=== PATIENT | male | born 1950 | race Caucasian/White ===

== ENCOUNTER → 2016-11-18 | Outpatient (CLI) | payer BC ==
[~2016-11-18] MED LIST: CHOL100010 PO; MULT-506 PO; SILD100T PO
[2016-11-18 13:49] LABS: BASO % 0.5 %; BASO ABS # 0.02 K/uL (0-0.2); COMPLETE YES; EOS % 2.2 %; IG% 0.2 %; LYMPH % 19.1 %; LYMPH ABS # 0.78 K/uL (1.2-3.4); MEAN CELL VOLUME 89.1 fL (80-100); MEAN CORPUSCULAR HGB CONC 34.8 g/dl (32-36); MEAN PLATELET VOLUME 9.2 fL (7.4-10.4); MONO % 10.8 %; NEUT % 67.2 %; PLATELET COUNT 214 K/uL (130-400); RED BLOOD COUNT 5.16 M/uL (4.7-6.1); WHITE BLOOD COUNT 4.08 K/uL (4.8-10.8)
[2016-11-18 14:18] LABS: CHOLESTEROL/HDL RATIO 3.3
[2016-11-18 14:19] LABS: ALT/SGPT 50 U/L (12-78); AST/SGOT 20 U/L (15-37); BLOOD UREA NITROGEN 10 mg/dl (7-18); BUN/CREATININE RATIO 10.1 (10-20); CALCIUM 9.3 mg/dl (8.5-10.1); CARBON DIOXIDE 29 mmol/L (21-32); CHLORIDE 105 mmol/L (98-107); GLUCOSE 93 mg/dl (70-99); POTASSIUM 4.3 mmol/L (3.5-5.1); SODIUM 140 mmol/L (136-145)
[2016-11-18 14:25] LABS: ALB/GLOB RATIO 1.1 (0.9-2); ALKALINE PHOSPHATASE 89 U/L (45-117); PROSTATE SPECIFIC ANTIGEN 0.316 ng/ml (0.000-4.000)
== END | disposition home or self-care (01) ==
LOC: C.LABBC 12:02
PROVIDERS: ATTEND Nurse Practitioner Family
DX: Z11.59 Encounter for screening for other viral diseases (principal); Z13.220 Encounter for screening for lipoid disorders; Z12.5 Encounter for screening for malignant neoplasm of prostate; R03.0 Elevated blood-pressure reading, without diagnosis of hypertension

== ENCOUNTER → 2017-11-23 | Outpatient (CLI) | payer BC ==
[2017-11-23 13:44] LABS: BASO % 0.3 %; BASO ABS # 0.01 K/uL (0-0.2); EOS % 2.1 %; EOS ABS # 0.08 K/uL (0-0.5); HEMATOCRIT 45.8 % (42-52); HEMOGLOBIN 15.4 g/dL (14.0-18.0); IG# 0.01 K/uL (0.00-0.02); LYMPH % 26.8 %; LYMPH ABS # 1.03 K/uL (1.2-3.4); MEAN CELL VOLUME 89.1 fL (80-100); MEAN CORPUSCULAR HGB CONC 33.6 g/dl (32-36); MEAN PLATELET VOLUME 8.9 fL (7.4-10.4); MONO % 9.1 %; MONO ABS # 0.35 K/uL (0.11-0.59); NEUT % 61.4 %; NEUT ABS # 2.37 K/uL (1.4-6.5); PLATELET COUNT 239 K/uL (130-400); RED CELL DISTRIBUTION WIDTH CV 13.4 % (11.5-14.5); RED CELL DISTRIBUTION WIDTH SD 43.7 fL (36.4-46.3); WHITE BLOOD COUNT 3.85 K/uL (4.8-10.8)
[2017-11-23 14:20] LABS: ALBUMIN 3.7 gm/dl (3.4-5.0); ALT/SGPT 46 U/L (12-78); AST/SGOT 25 U/L (15-37); BLOOD UREA NITROGEN 14 mg/dl (7-18); CALCIUM 9.3 mg/dl (8.5-10.1); CARBON DIOXIDE 29 mmol/L (21-32); CHOLESTEROL 293 mg/dl (0-200); CREATININE 1.04 mg/dl (0.60-1.40); GLUCOSE 85 mg/dl (70-99); POTASSIUM 4.3 mmol/L (3.5-5.1); SODIUM 141 mmol/L (136-145)
[2017-11-23 14:22] LABS: ALKALINE PHOSPHATASE 104 U/L (45-117); LDL CHOLESTEROL CALCULATED 185 mg/dl; TOTAL PROTEIN 7.3 gm/dl (6.4-8.2)
== END | disposition home or self-care (01) ==
LOC: C.LABBC 10:24
PROVIDERS: ATTEND Nurse Practitioner Family
DX: E53.8 Deficiency of other specified B group vitamins (principal)

== ENCOUNTER → 2017-11-24 | Outpatient (CLI) | payer BC | END | disposition home or self-care (01) | LOC: C.LABBC 12:12 | PROVIDERS: ATTEND Nurse Practitioner Family | DX: Z12.5 Encounter for screening for malignant neoplasm of prostate (principal) ==

== ENCOUNTER 2021-03-22 17:05 | Observation (INO) ==
[2021-03-22] MEDS ORDERED: SODIUM CHLORIDE 0.9% 1000ML 1,000 ML IV STA (17:15)
[2021-03-22] MEDS ORDERED: ONDANSETRON INJ 2 MG/ML 2 ML VIAL IV STA (17:15)
[2021-03-22] MEDS ORDERED: HYDROmorphone INJ 0.5 MG/0.5 ML SYR IV STA (17:15)
[2021-03-22 17:35] LABS: Basophils # (auto) 0.01 K/uL (0-0.2); Basophils % (auto) 0.1 %; Eosinophils # (auto) 0.02 K/uL (0-0.5); Eosinophils % (auto) 0.3 %; Hematocrit (blood only) 43.1 % (42-52); Hemoglobin 14.9 g/dL (14.0-18.0); Immature Granulocytes # (auto) 0.03 K/uL (0.00-0.02); Immature Granulocytes % (auto) 0.4 %; Lymphocytes # (auto) 0.78 K/uL (1.2-3.4); Lymphocytes % (auto) 11.3 %; Mean Corpuscular Hemoglobin 31.3 pg (25-34); Mean Corpuscular Hgb Conc 34.6 g/dL (32-36); Mean Corpuscular Volume 90.5 fL (80-100); Mean Platelet Volume 8.8 fL (7.4-10.4); Monocytes # (auto) 0.32 K/uL (0.11-0.59); Monocytes % (auto) 4.6 %; Neutrophils # (auto) 5.73 K/uL (1.4-6.5); Neutrophils % (auto) 83.3 %; Platelet Count 247 K/uL (130-400); RDW Coefficient of Variation 13.1 % (11.5-14.5); RDW Standard Deviation 43.4 fL (36.4-46.3); Red Blood Count 4.76 M/uL (4.7-6.1); White Blood Count 6.89 K/uL (4.8-10.8)
[2021-03-22 17:55] LABS: Alanine Aminotransferase 43 U/L (12-78); Albumin Level 3.9 gm/dl (3.4-5.0); Aspartate Aminotransferase 23 U/L (15-37); Blood Urea Nitrogen 14 mg/dl (7-18); Calcium 10.1 mg/dl (8.5-10.1); Carbon Dioxide 26 mmol/L (21-32); Chloride 103 mmol/L (98-107); Creatinine Clr Calc Pharmacy 62.4 ml/min; Est GFR (African American) 82.4; Est GFR (Non-African American) 71.1; Glucose 153 mg/dl (70-99); Lipase 119 U/L (73-393); Potassium 3.7 mmol/L (3.5-5.1); Sodium 137 mmol/L (136-145)
[2021-03-22 17:59] LABS: Alkaline Phosphatase 207 U/L (45-117); Bilirubin,Total 0.6 mg/dl (0.2-1); Globulin 3.8 gm/dl (2.5-4.0); Total Protein 7.7 gm/dl (6.4-8.2); Troponin I < 0.015 ng/ml (0-0.045)
[2021-03-22] MEDS ORDERED: OPTIRAY 350 500ml IV ONE (18:09)
[2021-03-22] MEDS ORDERED: HYDROmorphone INJ 1 MG/ML SYRINGE IV STA ×2 (18:44→19:46)
--- NOTE | 2021-03-22 18:50 | Emergency Department Note ---
History of Present Illness General Chief complaint: Abdominal Pain Stated complaint: SEVERE ABDOMIAL PAIN Time Seen by Provider: 03/22/21 17:15 Source: patient and RN notes reviewed Mode of arrival: ambulatory Limitations: no limitations History of Present Illness Provider complaint: Severe epigastric abdominal pain Maximum Pain Intensity: 8 This patient is a 71-year-old male who presents emergency department with severe epigastric abdominal pain that began late this morning/early afternoon. Patient states it became severe when he was sitting at the playground watching his grandchildren play. He denies ever having pain like this in the past. He thinks maybe he had a less severe version of this discomfort yesterday evening. He denies any chest pain, shortness of breath but admits to some nausea. He states he simply cannot find a position to become comfortable. He denies any d iarrhea or blood in the stools. He denies any significant past medical history and states he does have a gallbladder. Home Medications Medication Instructions Recorded Confirmed Type atorvastatin 20 mg tablet 20 mg PO HS #90 tab 10/27/20 03/22/21 Rx sildenafil 100 mg tablet 100 mg PO DAILY PRN #6 tab 01/22/21 03/22/21 Rx lisinopril 5 mg tablet 5 mg PO DAILY #90 tab 02/23/21 03/22/21 Rx Allergies Allergy/AdvReac Type Severity Reaction Status Date / Time Penicillins Allergy Mild Unknown Verified 03/22/21 17:35 Past Med/Surg History Medical History Elevated blood pressure reading without diagnosis of hypertension Hypercholesterolemia Vitamin B12 deficiency Surgical History No history of previous surgery Family History Mother Myocardial infarction Pancreatic cancer Father Parkinsons Denies family history of Ovarian cancer Prostate cancer Breast cancer Colorectal cancer Social History Smoking Status: Former smoker Tobacco Type: Cigarettes Age Started Using Tobacco: 22; Age Quit Using Tobacco: 50; packs per day: 0.5; Years Smoked: 28; Cigarettes Per Day: 10; Smoking End Date: 1979; Number of Years Since Quit: 20; Second Hand Exposure: No; Do You Dip or Chew Tobacco: No; Hx Alcohol Use: Yes Alcohol type: beer Alcohol Intake Frequency Comment: "6 beers a week" Hx Substance Use: No Preferred Language: Georgian Communication Ability: Effective Visual Impairment: No Limitations Hearing Ability: Normal Awning Craftsman Required: No Beliefs That Will Affect Care: None marital status: Current Living Situation: Spouse 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 status: retired 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 and A total of 10 systems reviewed and were otherwise negative Physical Exam Vital Signs Vital Signs - 24 hr 03/22/21 17:08 03/22/21 17:22 03/22/21 17:26 Temperature 36.5 C Temperature Source Temporal Artery Scan Pulse Rate 49 L 42 L 41 L Pulse Rate from SpO2 Sensor 42 L 42 L Respiratory Rate 21 13 20 Respiratory Effort / Characteristics Non-Labored Respiratory Depth Normal Blood Pressure 176/76 H 170/80 H Blood Pressure Mean 109 110 Pulse Oximetry 98 98 99 Oxygen Delivery Method Room Air Room Air Room Air Sepsis Recent Fever Within 48 Hours No Sepsis New/Unexplained Change in Mental Status No Sepsis Action Taken by Nursing No Action Required 03/22/21 17:30 03/22/21 17:31 03/22/21 17:33 Temperature Temperature Source Pulse Rate 42 L 44 L Pulse Rate from SpO2 Sensor 43 L 45 L Respiratory Rate 17 15 Respiratory Effort / Characteristics Respiratory Depth Blood Pressure 150/77 H Blood Pressure Mean 101 Pulse Oximetry 96 98 Oxygen Delivery Method Room Air Room Air Room Air Sepsis Recent Fever Within 48 Hours Sepsis New/Unexplained Change in Mental Status Sepsis Action Taken by Nursing 03/22/21 17:40 03/22/21 17:50 03/22/21 18:01 Temperature Temperature Source Pulse Rate 48 L 43 L Pulse Rate from SpO2 Sensor 49 L 42 L Respiratory Rate 15 14 Respiratory Effort / Characteristics Respiratory Depth Blood Pressure 140/78 Blood Pressure Mean 98 Pulse Oximetry 97 97 Oxygen Delivery Method Room Air Room Air Room Air Sepsis Recent Fever Within 48 Hours Sepsis New/Unexplained Change in Mental Status Sepsis Action Taken by Nursing 03/22/21 18:22 03/22/21 18:23 03/22/21 18:30 Temperature Temperature Source Pulse Rate 43 L 48 L 46 L Pulse Rate from SpO2 Sensor 54 L 48 L 49 L Respiratory Rate 17 21 10 L Respiratory Effort / Characteristics Respiratory Depth Blood Pressure 153/76 H 165/81 H Blood Pressure Mean 101 109 Pulse Oximetry 96 98 98 Oxygen Delivery Method Room Air Room Air Room Air Sepsis Recent Fever Within 48 Hours Sepsis New/Unexplained Change in Mental Status Sepsis Action Taken by Nursing 03/22/21 18:40 03/22/21 18:50 03/22/21 19:00 Temperature Temperature Source Pulse Rate 45 L 53 L 52 L Pulse Rate from SpO2 Sensor 45 L 46 L 45 L Respiratory Rate 10 L 18 42 H Respiratory Effort / Characteristics Respiratory Depth Blood Pressure Blood Pressure Mean Pulse Oximetry 96 92 91 Oxygen Delivery Method Room Air Room Air Room Air Sepsis Recent Fever Within 48 Hours Sepsis New/Unexplained Change in Mental Status Sepsis Action Taken by Nursing 03/22/21 19:05 03/22/21 19:30 03/22/21 20:00 Temperature Temperature Source Pulse Rate 58 L 46 L 59 L Pulse Rate from SpO2 Sensor 58 L 46 L 59 L Respiratory Rate 13 9 L 13 Respiratory Effort / Characteristics Respiratory Depth Blood Pressure 139/75 138/67 152/96 H Blood Pressure Mean 96 90 114 Pulse Oximetry 99 98 97 Oxygen Delivery Method Sepsis Recent Fever Within 48 Hours Sepsis New/Unexplained Change in Mental Status Sepsis Action Taken by Nursing 03/22/21 20:01 Temperature Temperature Source Pulse Rate 58 L Pulse Rate from SpO2 Sensor 58 L Respiratory Rate 14 Respiratory Effort / Characteristics Respiratory Depth Blood Pressure Blood Pressure Mean Pulse Oximetry 96 Oxygen Delivery Method Sepsis Recent Fever Within 48 Hours Sepsis New/Unexplained Change in Mental Status Sepsis Action Taken by Nursing Vital signs reviewed. General: Well-appearing 71 yo male, in no significant distress. HEENT: No scleral icterus, PERRLA, neck supple. Atraumatic. Cardiovascular: Regular rate and rhythm, no extra sounds. Pulmonary: Clear to auscultation bilaterally, normal work of breathing. Abdomen: Soft, tender to palpation in the epigastric region, no rebound, no guarding, nondistended, positive bowel sounds. Musculoskeletal: Atraumatic, no peripheral edema. Neurologic: Patient awake alert and oriented x 3 Skin: Warm, dry, no rash Course Administered Medications Heparin Sodium (Porcine) (Heparin Sod 5,000 Unit/0.5 Ml Vial) 5,000 units SQ Q8 [facility] Stop: 04/21/21 22:34 Last Admin: 03/22/21 23:54 Dose: Not Given Documented by: [id number] Hydromorphone HCl (Hydromorphone Inj 0.5 Mg/0.5 Ml Syr) 0.5 mg IV Q4H PRN PRN Reason: Pain Stop: 04/05/21 22:34 Last Admin: 03/22/21 23:57 Dose: 0.5 mg Documented by: [id number] Lactated Ringer's (Lr) 1,000 mls @ 80 mls/hr IV .[id number] [facility] Stop: 04/21/21 22:34 Last Admin: 03/22/21 23:02 Dose: 80 mls/hr Documented by: [id number] Metronidazole (Flagyl) 500 mg in 100 mls @ 100 mls/hr IV Q8 [facility] Stop: 04/01/21 23:14 Last Admin: 03/22/21 23:55 Dose: 100 mls/hr Documented by: [id number] Ondansetron HCl (Ondansetron Inj 2 Mg/Ml 2 Ml Vial) 4 mg IV Q6H PRN PRN Reason: Nausea Stop: 04/21/21 22:34 Last Admin: 03/22/21 23:58 Dose: 4 mg Documented by: [id number] Discontinued Medications Hydromorphone HCl (Hydromorphone Inj 0.5 Mg/0.5 Ml Syr) 0.5 mg IV NOW STA Stop: 03/22/21 17:16 Last Admin: 03/22/21 17:31 Dose: 0.5 mg Documented by: [id number] Hydromorphone HCl (Hydromorphone Inj 1 Mg/Ml Syringe) 1 mg IV NOW STA Stop: 03/22/21 18:45 Last Admin: 03/22/21 19:02 Dose: 1 mg Documented by: [id number] Hydromorphone HCl (Hydromorphone Inj 1 Mg/Ml Syringe) 1 mg IV NOW STA Stop: 03/22/21 19:47 Last Admin: 03/22/21 19:53 Dose: 1 mg Documented by: [id number] Sodium Chloride (Nss 1000ml) 1,000 mls @ 125 mls/hr IV .Q8H STA Stop: 03/23/21 01:14 Last Admin: 03/22/21 17:29 Dose: 125 mls/hr Documented by: [id number] Cefoxitin Sodium (Mefoxin) 2,000 mg in 60 mls @ 100 mls/hr IV NOW STA Stop: 03/22/21 19:58 Last Infusion: 03/22/21 20:46 Dose: 0 mls/hr Documented by: [id number] Admin: 03/22/21 19:49 Dose: 100 mls/hr Documented by: [id number] Ioversol (Optiray 350 500ml) 120 ml IV ONCE ONE Stop: 03/22/21 18:10 Last Admin: 03/22/21 18:13 Dose: 120 ml Documented by: [id number] Ondansetron HCl (Ondansetron Inj 2 Mg/Ml 2 Ml Vial) 4 mg IV NOW STA Stop: 03/22/21 17:16 Last Admin: 03/22/21 17:30 Dose: 4 mg Documented by: [id number] Medical Decision Making Differential Diagnosis Appendicitis, ACS, infections, diverticulitis, UTI, obstruction, mesenteric ischemia, aortic pathology, inflammatory bowel disease, renal colic, PUD, pancreatitis, biliary pathology, hernia, volvulus, constipation, as well as other pathologies. Medical Records Attestation: I reviewed the patient's medical records. Home Medications Current Medication List: was personally reviewed by me Laboratory Data Attestation: I reviewed the patient's lab results. Result diagrams: 03/22/21 17:24 03/22/21 17:24 Lab Results 03/22/21 03/22/21 03/22/21 Range/Units 17:24 17:24 17:24 WBC 6.89 (4.8-10.8) K/uL RBC 4.76 (4.7-6.1) M/uL Hgb 14.9 (14.0-18.0) g/dL Hct 43.1 (42-52) % MCV 90.5 (80-100) fL MCH 31.3 (25-34) pg MCHC 34.6 (32-36) g/dL RDW Std Deviation 43.4 (36.4-46.3) fL RDW Coeff of Feliz 13.1 (11.5-14.5) % Plt Count 247 (130-400) K/uL MPV 8.8 (7.4-10.4) fL Immature Gran % (Auto) 0.4 % Neut % (Auto) 83.3 % Lymph % (Auto) 11.3 % [place] % (Auto) 4.6 % Eos % (Auto) 0.3 % Baso % (Auto) 0.1 % Neut # (Auto) 5.73 (1.4-6.5) K/uL Lymph # (Auto) 0.78 L (1.2-3.4) K/uL [place] # (Auto) 0.32 (0.11-0.59) K/uL Eos # (Auto) 0.02 (0-0.5) K/uL Baso # (Auto) 0.01 (0-0.2) K/uL Immature Gran # (Auto) 0.03 H (0.00-0.02) K/uL Sodium 137 (136-145) mmol/L Potassium 3.7 (3.5-5.1) mmol/L Chloride 103 (98-107) mmol/L Carbon Dioxide 26 (21-32) mmol/L Anion Gap 9.0 (3-11) BUN 14 (7-18) mg/dl Creatinine 1.05 (0.6-1.4) mg/dl Est Cr Clr Drug Dosing 62.4 ml/min Est GFR ( Amer) 82.4 Est GFR (Non-Af Amer) 71.1 BUN/Creatinine Ratio 13.0 (10-20) Glucose 153 H (70-99) mg/dl Lactate 3.5 H* (0.4-2.0) mmol/L Calcium 10.1 (8.5-10.1) mg/dl Total Bilirubin 0.6 (0.2-1) mg/dl AST 23 (15-37) U/L ALT 43 (12-78) U/L Alkaline Phosphatase 207 H (45-117) U/L Troponin I < 0.015 (0-0.045) ng/ml Total Protein 7.7 (6.4-8.2) gm/dl Albumin 3.9 (3.4-5.0) gm/dl Globulin 3.8 (2.5-4.0) gm/dl Albumin/Globulin Ratio 1.0 (0.9-2) Lipase 119 (73-393) U/L Urine Color Urine Appearance (Clear) Urine pH (4.5-7.5) Ur Specific [place] (1.000-1.030) Urine Protein (Negative) Urine Glucose (UA) (Negative) Urine Ketones (Negative) Urine Blood (Negative) Urine Nitrite (Negative) Urine Bilirubin (Negative) Urine Urobilinogen (Negative) Ur Leukocyte Esterase (Negative) COVID-19 Eval Order SARS-CoV-2 (PCR) (Negative) Influenza Type A (PCR) (Neg) Influenza Type B (PCR) (Neg) RSV (RT-PCR) (Neg) 03/22/21 03/22/21 03/22/21 Range/Units 18:40 19:35 19:35 WBC (4.8-10.8) K/uL RBC (4.7-6.1) M/uL Hgb (14.0-18.0) g/dL Hct (42-52) % MCV (80-100) fL MCH (25-34) pg MCHC (32-36) g/dL RDW Std Deviation (36.4-46.3) fL RDW Coeff of Feliz (11.5-14.5) % Plt Count (130-400) K/uL MPV (7.4-10.4) fL Immature Gran % (Auto) % Neut % (Auto) % Lymph % (Auto) % [place] % (Auto) % Eos % (Auto) % Baso % (Auto) % Neut # (Auto) (1.4-6.5) K/uL Lymph # (Auto) (1.2-3.4) K/uL [place] # (Auto) (0.11-0.59) K/uL Eos # (Auto) (0-0.5) K/uL Baso # (Auto) (0-0.2) K/uL Immature Gran # (Auto) (0.00-0.02) K/uL Sodium (136-145) mmol/L Potassium (3.5-5.1) mmol/L Chloride (98-107) mmol/L Carbon Dioxide (21-32) mmol/L Anion Gap (3-11) BUN (7-18) mg/dl Creatinine (0.6-1.4) mg/dl Est Cr Clr Drug Dosing ml/min Est GFR ( Amer) Est GFR (Non-Af Amer) BUN/Creatinine Ratio (10-20) Glucose (70-99) mg/dl Lactate (0.4-2.0) mmol/L Calcium (8.5-10.1) mg/dl Total Bilirubin (0.2-1) mg/dl AST (15-37) U/L ALT (12-78) U/L Alkaline Phosphatase (45-117) U/L Troponin I (0-0.045) ng/ml Total Protein (6.4-8.2) gm/dl Albumin (3.4-5.0) gm/dl Globulin (2.5-4.0) gm/dl Albumin/Globulin Ratio (0.9-2) Lipase (73-393) U/L Urine Color Yellow Urine Appearance Clear (Clear) Urine pH 5.5 (4.5-7.5) Ur Specific [place] 1.023 (1.000-1.030) Urine Protein Negative (Negative) Urine Glucose (UA) Negative (Negative) Urine Ketones Trace H (Negative) Urine Blood Negative (Negative) Urine Nitrite Negative (Negative) Urine Bilirubin Negative (Negative) Urine Urobilinogen Negative (Negative) Ur Leukocyte Esterase Negative (Negative) COVID-19 Eval Order [facility]FluRsv at [facility] SARS-CoV-2 (PCR) NEGATIVE (Negative) Influenza Type A (PCR) Negative (Neg) Influenza Type B (PCR) Negative (Neg) RSV (RT-PCR) Negative (Neg) Imaging Data Radiologist's Impression: Abdomen/Pelvis CTA 03/22/21 17:52 CT ANGIOGRAM OF THE CHEST, ABDOMEN, AND PELVIS WITH IV CONTRAST CLINICAL HISTORY: Bradycardia. Epigastric abdominal pain. COMPARISON STUDY: Chest CT dated 03/06/2021. TECHNIQUE: Following the IV administration of 120 cc of Optiray 350, CT ang iogram of the chest, abdomen, and pelvis was performed from the thoracic inlet to the proximal femora. Images are reviewed in the axial, sagittal, and coronal planes. 3-D MIPS images are created and assessed. IV contrast was administered without complication. A dose lowering technique was utilized adhering to the principles of ALARA. CT DOSE: 632.82 mGy.cm FINDINGS: CHEST: Thyroid: Imaged portions of the thyroid gland are normal in size and attenuation. Thoracic aorta: There is mild atherosclerotic calcification of the thoracic aorta, which is normal in course and caliber. The aortic arch demonstrates standard 3-vessel anatomy. No aneurysm or dissection is seen. Pulmonary vasculature: The main pulmonary arteries are mildly dilated suggesting pulmonary artery hypertension. There are no filling defects identified within the main, lobar, or segmental pulmonary arteries to suggest pulmonary embolus. Heart: The heart is mildly enlarged and without pericardial effusion. The coronary arteries are densely calcified. Lungs and pleural spaces: Mild emphysematous change is noted. There is no airspace consolidation typical for pneumonia or pleural effusion. Foci of parenchymal scarring/atelectasis are seen throughout both lungs. The trachea and central airways are clear. Diffuse peribronchial thickening is noted. There are scattered calcified granulomas. Mediastinum: There is no mediastinal lymphadenopathy. Julia: Clear. Axillae: There is no axillary lymphadenopathy. Bony thorax: The skeletal structures are osteopenic. No lytic or blastic lesions are identified. ABDOMEN AND PELVIS: Liver: The contrast-enhanced liver is normal in size, contour, and attenuation. There is no intrahepatic biliary ductal dilatation. Gallbladder: There are numerous calcified gallstones, with a 2.5 cm gallstone the region of gallbladder neck. Question mild infiltration around the gallbladder neck. Spleen: Normal in size and attenuation noting heterogeneous arterial phase enhancement. Pancreas: Unremarkable. Adrenal glands: There is mild nodular thickening of the adrenal glands. Kidneys: The contrast enhanced kidneys are normal in size and without hydronephrosis. The kidneys enhance symmetrically. Abdominal aorta and iliac arteries: There is moderate atherosclerotic calcification mild ectasia of the abdominal aorta. No aneurysm or dissection is seen. The abdominal aorta and iliac arteries are widely patent. Major branches of the abdominal aorta: The celiac trunk, superior mesenteric, and inferior mesenteric arteries are widely patent. Hepatic arterial anatomy is conventional. The splenic artery is patent. Single bilateral renal arteries are widely patent. Bowel: There is no bowel obstruction. The appendix is well-visualized and normal. Peritoneum: No intraperitoneal free air is identified. There is trace perisplenic ascites. Lymphadenopathy: Shotty subcentimeter retroperitoneal lymph nodes are nonspecific. No pathologically enlarged lymph nodes are identified in the abdomen or pelvis. Pelvic viscera: The prostate gland is mildly enlarged and heterogeneous. The bladder wall appears thickened and trabeculated suggesting chronic outlet obstruction. Skeletal structures: The skeletal structures are osteopenic. There is mild to moderate lumbosacral spondylosis. No lytic or blastic bony lesions are seen. IMPRESSION: 1. Unremarkable CT angiogram of the thoracic aorta and abdominal aorta. 2. There is no evidence of pulmonary embolus in the main, lobar, or segmental pulmonary arteries. 3. Mild cardiomegaly and mild emphysematous change. 4. There is no airspace consolidation typical for pneumonia or pleural effusion. 5. Diffuse peribronchial thickening suggests bronchitis/reactive airway disease. Clinical correlation will be required. 6. Cholelithiasis with a 2.5 cm gallstone the region of the gallbladder neck. Question faint surrounding infiltration. If there is clinical concern for acute cholecystitis a right upper quadrant ultrasound should be considered. 7. Unremarkable CT angiogram of the major branches of the abdominal aorta. 8. There is trace nonspecific perisplenic ascites. 9. The bladder wall appears thickened and trabeculated, likely representing the sequelae of chronic outlet obstruction. Correlate with urinalysis. 10. Additional findings as above. ACT 112: Negative or not required by law. Electronically signed by: Juan Talbot M.D. 03/22/2021 6:56 PM Chest CTA 03/22/21 17:52 CT ANGIOGRAM OF THE CHEST, ABDOMEN, AND PELVIS WITH IV CONTRAST CLINICAL HISTORY: Bradycardia. Epigastric abdominal pain. COMPARISON STUDY: Chest CT dated 03/06/2021. TECHNIQUE: Following the IV administration of 120 cc of Optiray 350, CT angiogram of the chest, abdomen, and pelvis was performed from the thoracic inlet to the proximal femora. Images are reviewed in the axial, sagittal, and coronal planes. 3-D MIPS images are created and assessed. IV contrast was administered without complication. A dose lowering technique was utilized adhering to the principles of ALARA. CT DOSE: 632.82 mGy.cm FINDINGS: CHEST: Thyroid: Imaged portions of the thyroid gland are normal in size and attenuation. Thoracic aorta: There is mild atherosclerotic calcification of the thoracic aorta, which is normal in course and caliber. The aortic arch demonstrates standard 3-vessel anatomy. No aneurysm or dissection is seen. Pulmonary vasculature: The main pulmonary arteries are mildly dilated suggesting pulmonary artery hypertension. There are no filling defects identified within the main, lobar, or segmental pulmonary arteries to suggest pulmonary embolus. Heart: The heart is mildly enlarged and without pericardial effusion. The coronary arteries are densely calcified. Lungs and pleural spaces: Mild emphysematous change is noted. There is no airspace consolidation typical for pneumonia or pleural effusion. Foci of parenchymal scarring/atelectasis are seen throughout both lungs. The trachea and central airways are clear. Diffuse peribronchial thickening is noted. There are scattered calcified granulomas. Mediastinum: There is no mediastinal lymphadenopathy. Julia: Clear. Axillae: There is no axillary lymphadenopathy. Bony thorax: The skeletal structures are osteopenic. No lytic or blastic lesions are identified. ABDOMEN AND PELVIS: Liver: The contrast-enhanced liver is normal in size, contour, and attenuation. There is no intrahepatic biliary ductal dilatation. Gallbladder: There are numerous calcified gallstones, with a 2.5 cm gallstone the region of gallbladder neck. Question mild infiltration around the gallbladder neck. Spleen: Normal in size and attenuation noting heterogeneous arterial phase enhancement. Pancreas: Unremarkable. Adrenal glands: There is mild nodular thickening of the adrenal glands. Kidneys: The contrast enhanced kidneys are normal in size and without hydronephrosis. The kidneys enhance symmetrically. Abdominal aorta and iliac arteries: There is moderate atherosclerotic calcification mild ectasia of the abdominal aorta. No aneurysm or dissection is seen. The abdominal aorta and iliac arteries are widely patent. Major branches of the abdominal aorta: The celiac trunk, superior mesenteric, and inferior mesenteric arteries are widely patent. Hepatic arterial anatomy is conventional. The splenic artery is patent. Single bilateral renal arteries are widely patent. Bowel: There is no bowel obstruction. The appendix is well-visualized and normal. Peritoneum: No intraperitoneal free air is identified. There is trace perisplenic ascites. Lymphadenopathy: Shotty subcentimeter retroperitoneal lymph nodes are nonspecific. No pathologically enlarged lymph nodes are identified in the abdomen or pelvis. Pelvic viscera: The prostate gland is mildly enlarged and heterogeneous. The bladder wall appears thickened and trabeculated suggesting chronic outlet obstruction. Skeletal structures: The skeletal structures are osteopenic. There is mild to moderate lumbosacral spondylosis. No lytic or blastic bony lesions are seen. IMPRESSION: 1. Unremarkable CT angiogram of the thoracic aorta and abdominal aorta. 2. There is no evidence of pulmonary embolus in the main, lobar, or segmental pulmonary arteries. 3. Mild cardiomegaly and mild emphysematous change. 4. There is no airspace consolidation typical for pneumonia or pleural effusion. 5. Diffuse peribronchial thickening suggests bronchitis/reactive airway disease. Clinical correlation will be required. 6. Cholelithiasis with a 2.5 cm gallstone the region of the gallbladder neck. Question faint surrounding infiltration. If there is clinical concern for acute cholecystitis a right upper quadrant ultrasound should be considered. 7. Unremarkable CT angiogram of the major branches of the abdominal aorta. 8. There is trace nonspecific perisplenic ascites. 9. The bladder wall appears thickened and trabeculated, likely representing the sequelae of chronic outlet obstruction. Correlate with urinalysis. 10. Additional findings as above. ACT 112: Negative or not required by law. Electronically signed by: Juan Talbot M.D. 03/22/2021 6:56 PM ECG Data Attestation: I personally reviewed and interpreted this ECG as follows: Indication: + bradycardia Rate (beats per minute): 39 Rhythm: + sinus bradycardia ECG Intervals/blocks: + Normal QRS and + Normal QT-c ECG [place]: + Normal ECG ST segments: + Normal ST segments ECG Findings: + PVCs; no PACs Comparison ECG Date: no prior available Blood Pressure Blood Pressure Findings: Elevated blood pressure Blood Pressure Disposition: further management by hospitalist MDM Narrative This patient was evaluated and appeared to be in some discomfort. IV access was obtained and laboratory work was drawn. An order for cardiac monitoring was placed and the patient is noted to be in a sinus bradycardia with occasional PVCs but around 45 bpm. Patient's blood pressure is however slightly elevated. Medicated with IV Dilaudid 0.5 mg and Zofran 4 mg IV. He was hydrated with normal saline solution. Given the patient's bradycardia and epigastric pain, CT imaging of the chest, abdomen and pelvis was ordered with IV contrast to evaluate the aorta. The study is negative for dissection however there is a gallstone impacted in the gallbladder neck. There is minimal stranding. Patient's laboratory work reveals a normal troponin, elevated lactate of 3.6 and normal LFTs. Lipase is normal. Follow-up ultrasound was ordered and the patient was more aggressively hydrated with saline and given 2 g of IV Mefoxin. General surgery, Dr. Andrade was consulted. He has requested general medicine admission. Dr. Johnson of the hospitalist service was consulted for further management. Patient and are aware of the plan and agree. Impression & Plan Bradycardia, Symptomatic cholelithiasis, Impacted gallstone of gallbladder Discharge Plan Visit Data Chief Complaint: Abdominal Pain Stated Complaint: SEVERE ABDOMIAL PAIN ED Provider: Kath Alatorre Discharge Problem: Bradycardia, Symptomatic cholelithiasis, Impacted gallstone of gallbladder Patient Disposition: Admitted As Inpatient Discharge Instructions Interventions: ED Discharge Assessment Last Done: 03/22/21 21:57
[2021-03-22 18:58] LABS: Appearance Urine Clear (Clear); Bilirubin Urine Negative (Negative); Blood Urine Negative (Negative); Color Urine Yellow; Glucose Urine UA Negative (Negative); Ketones Urine Trace (Negative); Leukocyte Esterase Urine Negative (Negative); Nitrite Urine Negative (Negative); Protein Urine Negative (Negative); Specific Gravity Urine 1.023 (1.000-1.030); Urobilinogen Urine Negative (Negative); pH Urine 5.5 (4.5-7.5)
--- NOTE | 2021-03-22 18:58 | CT Scan Report ---
CT ANGIOGRAM OF THE CHEST, ABDOMEN, AND PELVIS WITH IV CONTRAST CLINICAL HISTORY: Bradycardia. Epigastric abdominal pain. COMPARISON STUDY: Chest CT dated 03/06/2021. TECHNIQUE: Following the IV administration of 120 cc of Optiray 350, CT angiogram of the chest, abdom en, and pelvis was performed from the thoracic inlet to the proximal femora. Images are reviewed in [facility] axial, sagittal, and coronal planes. 3-D MIPS images are created and assessed. IV contrast was adm inistered without complication. A dose lowering technique was utilized adhering to the principles of ALARA. CT DOSE: 632.82 mGy.cm FINDINGS: CHEST: Thyroid: Imaged portions of the thyroid gland are normal in size and attenuation. Thoracic aorta: There is mild atherosclerotic calcification of the thoracic aorta, which is normal in course and caliber. The aortic arch demonstrates standard 3-vessel anatomy. No aneurysm or dissectio n is seen. Pulmonary vasculature: The main pulmonary arteries are mildly dilated suggesting pulmonary artery hyp ertension. There are no filling defects identified within the main, lobar, or segmental pulmonary art eries to suggest pulmonary embolus. Heart: The heart is mildly enlarged and without pericardial effusion. The coronary arteries are dense ly calcified. Lungs and pleural spaces: Mild emphysematous change is noted. There is no airspace consolidation typi kiara for pneumonia or pleural effusion. Foci of parenchymal scarring/atelectasis are seen throughout b oth lungs. The trachea and central airways are clear. Diffuse peribronchial thickening is noted. Ther e are scattered calcified granulomas. Mediastinum: There is no mediastinal lymphadenopathy. Julia: Clear. Axillae: There is no axillary lymphadenopathy. Bony thorax: The skeletal structures are osteopenic. No lytic or blastic lesions are identified. ABDOMEN AND PELVIS: Liver: The contrast-enhanced liver is normal in size, contour, and attenuation. There is no intrahepa tic biliary ductal dilatation. Gallbladder: There are numerous calcified gallstones, with a 2.5 cm gallstone the region of gallbladd er neck. Question mild infiltration around the gallbladder neck. Spleen: Normal in size and attenuation noting heterogeneous arterial phase enhancement. Pancreas: Unremarkable. Adrenal glands: There is mild nodular thickening of the adrenal glands. Kidneys: The contrast enhanced kidneys are normal in size and without hydronephrosis. The kidneys enh ance symmetrically. Abdominal aorta and iliac arteries: There is moderate atherosclerotic calcification mild ectasia of t he abdominal aorta. No aneurysm or dissection is seen. The abdominal aorta and iliac arteries are wid lázaro patent. Major branches of the abdominal aorta: The celiac trunk, superior mesenteric, and inferior mesenteric arteries are widely patent. Hepatic arterial anatomy is conventional. The splenic artery is patent. Single bilateral renal arteries are widely patent. Bowel: There is no bowel obstruction. The appendix is well-visualized and normal. Peritoneum: No intraperitoneal free air is identified. There is trace perisplenic ascites. Lymphadenopathy: Shotty subcentimeter retroperitoneal lymph nodes are nonspecific. No pathologically enlarged lymph nodes are identified in the abdomen or pelvis. Pelvic viscera: The prostate gland is mildly enlarged and heterogeneous. The bladder wall appears thi ckened and trabeculated suggesting chronic outlet obstruction. Skeletal structures: The skeletal structures are osteopenic. There is mild to moderate lumbosacral sp ondylosis. No lytic or blastic bony lesions are seen. IMPRESSION: 1. Unremarkable CT angiogram of the thoracic aorta and abdominal aorta. 2. There is no evidence of pulmonary embolus in the main, lobar, or segmental pulmonary arteries. 3. Mild cardiomegaly and mild emphysematous change. 4. There is no airspace consolidation typical for pneumonia or pleural effusion. 5. Diffuse peribronchial thickening suggests bronchitis/reactive airway disease. Clinical correlation will be required. 6. Cholelithiasis with a 2.5 cm gallstone the region of the gallbladder neck. Question faint surround ing infiltration. If there is clinical concern for acute cholecystitis a right upper quadrant ultraso und should be considered. 7. Unremarkable CT angiogram of the major branches of the abdominal aorta. 8. There is trace nonspecific perisplenic ascites. 9. The bladder wall appears thickened and trabeculated, likely representing the sequelae of chronic o utlet obstruction. Correlate with urinalysis. 10. Additional findings as above. ACT 112: Negative or not required by law. Electronically signed by: Juan Talbot M.D. 03/22/2021 6:56 PM
[2021-03-22] MEDS ORDERED: cefOXitin 2,000 MG/60 ML BAG IV STA (19:23)
--- NOTE | 2021-03-22 20:38 | History & Physical Report ---
Date of Service March 22, 2021 Assessment & Plan (1) Cholelithiasis and cholecystitis without obstruction: Cholelithiasis with a 2.5 cm gallstone the region of the gallbladder neck. Question faint surrounding infiltration. If there is clinical concern for acute cholecystitis a right upper quadrant ultrasound should be considered. - NPO after midnight - Continue Cefoxitin, added Flagyl - Blood Cultures x2 - Gallbladder ultrasound pending - Trend Lactate- 3.5 - No WBC, qSOFA- 1, SIRS-1 on admission - LR overnight - LFT's normal, mildly elevated ALKpo4, normal bili, normal Lipase - Surgery consulted (2) Epigastric pain: Able to point to subxyphoid epigastrum with 1 finger - no radiation - ECG as above, admit to telemetry and monitor - Consistent with his known gallstones (3) Benign essential hypertension: Will hold lisinopril for now - If patient does not go to the OR will restart - If SBP >180 will treat tonight (4) Hypercholesterolemia: Continue atrovastatin 20 mg - No acute needs History of Present Illness Primary Care Provider: 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 Patient reports that he was at a birthday republic[employer] and out of now where he started getting a sharp aching pain to his epigastrium area. The patient points directly below his xiphoid process to localize the pain. The pain was constant pain and has remained constant level since then. This was associated with nausea without vomiting. He has had no dyspnea. The pain did not radiate to any other area. He last ate a hamburger at noon today and this did not change his pain. He had episode of diarrhea that was watery brown with no reports of blood or mucous in it. The patient feels as his pain is getting better following IV hydromorphone in the ER. During his initial work-up he was also found to be bradycardic in NSR. Patient normally is in the 70s per review of his outpatient apointments. There is no other ECG available for comparison. The patient had a CT scan of the abdomen done that revealed a 2.5 cm gallstone in the neck of the gall bladder, ultrasound is pending for follow up. Dr. Andrade from General Surgery was consulted by the JOSE Baker. He also received 2GM Cefoxitin, and 1 L 0.9 saline for a lactate of 3.5. He is hemodynamically stable, no other evidence of organ dysfunction, normal LFT's and lipase. He will be admitted [facility] floor for telemetry monitoring. Allergies Allergy/AdvReac Type Severity Reaction Status Date / Time Penicillins Allergy Mild Unknown Verified 03/22/21 17:35 Home Medications Medication Instructions Recorded Confirmed Type atorvastatin 20 mg tablet 20 mg PO HS #90 tab 10/27/20 03/22/21 Rx sildenafil 100 mg tablet 100 mg PO DAILY PRN #6 tab 01/22/21 03/22/21 Rx lisinopril 5 mg tablet 5 mg PO DAILY #90 tab 02/23/21 03/22/21 Rx Past Med/Surg History Medical History Elevated blood pressure reading without diagnosis of hypertension Hypercholesterolemia Vitamin B12 deficiency Surgical History No history of previous surgery Family History Mother Myocardial infarction Pancreatic cancer Father Parkinsons Denies family history of Ovarian cancer Prostate cancer Breast cancer Colorectal cancer Social History Smoking Status: Former smoker Tobacco Type: Cigarettes Age Started Using Tobacco: 22; Age Quit Using Tobacco: 50; packs per day: 0.5; Years Smoked: 28; Cigarettes Per Day: 10; Number of Years Since Quit: 20; Second Hand Exposure: No; Hx Alcohol Use: Yes Alcohol type: beer Alcohol Intake Frequency Comment: "6 beers a week" Hx Substance Use: No Preferred Language: Kazakh Communication Ability: Effective Visual Impairment: No Limitations Hearing Ability: Normal marital status: Current Living Situation: Spouse 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 status: retired 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 How many Children do You have: 2 Feels Safe at Home: Yes Childhood Exposure to Second-Hand Smoke: Yes caffeine: Yes during the past year weight has: increased > 10 lbs Dental Care, Regularly: Yes Physical Activity Frequency: 3-4 Times per Week Seatbelt Use: always Sunscreen Use: Yes Assistive Devices: Glasses Review of Systems Review of Systems: REVIEW OF SYSTEMS: Constitutional: No fever, sweats or chills Eyes: No diplopia, no worsening or blurred vision ENT: normal hearing, no trouble swallowing Respiratory: No cough, sputum, dyspnea at rest or on exertion Cardiovascular: No chest pain, tightness or palpitations Abdomen: (+) epigastric pain, nausea, diarrhea, NO vomiting, or constipation : (+) urinary frequency, (-) Pain, or feeling of incomplete bladder emptying Musculoskeletal: No joint pain, calf pain, swelling Neurologic: No weakness, numbness/tingling, or balance problems Psychiatric: No anxiety or depression Skin: No rash or itch Physical Exam Physical Exam: PHYSICAL EXAM: General: awake, alert, no apparent distress Head: Normocephalic, atraumatic ENT: PERRL, EOMI, no pharyngeal exudate, mucous membranes moist Neuro: AAO x 3, speech clear and appropriate, strength intact bilaterally 5/5, sensation intact and equal all extremities and dermatomes, no pronator drift Chest: equal rise and fall of the chest, no accessory muscle use, no heaves or thrills, Clear to auscultation, on room air, Cardiac: Regular rate and rhythm, telemetry reviewed regular sinus marii with occasional PVC, skin warm dry, cap refill <3 seconds, peripheral pulses +2 no JVD, no murmur, no edema GI: NABS x 4 quadrants, soft, nontender to palpation, no rebound, guarding or tenderness : Spontaneously voiding, no pain, no CVA tenderness, Extremities: Normal inspection, no peripheral edema or erythema, calfs nontender to palpation Psych: Normal mood and affect Skin: no rash or erythema Results & Data Results & Data ([facility]) Vital Signs (Past 12 Hours) Vital Signs Temp Pulse Resp BP Pulse Ox 03/22/21 19:00 52 L 42 H 91 03/22/21 18:50 53 L 18 92 03/22/21 18:40 45 L 10 L 96 03/22/21 18:30 46 L 10 L 165/81 H 98 03/22/21 18:23 48 L 21 153/76 H 98 03/22/21 18:22 43 L 17 96 03/22/21 18:01 140/78 03/22/21 17:50 43 L 14 97 03/22/21 17:40 48 L 15 97 03/22/21 17:31 44 L 15 150/77 H 98 03/22/21 17:30 42 L 17 96 03/22/21 17:26 41 L 20 99 03/22/21 17:22 42 L 13 170/80 H 98 03/22/21 17:08 36.5 C 49 L 21 176/76 H 98 Laboratory Results Abnormal lab results 03/22/21 03/22/21 03/22/21 Range/Units 17:24 17:24 17:24 Lymph # (Auto) 0.78 L (1.2-3.4) K/uL Immature Gran # (Auto) 0.03 H (0.00-0.02) K/uL Glucose 153 H (70-99) mg/dl Lactate 3.5 H* (0.4-2.0) mmol/L Alkaline Phosphatase 207 H (45-117) U/L Urine Ketones (Negative) 03/22/21 Range/Units 18:40 Lymph # (Auto) (1.2-3.4) K/uL Immature Gran # (Auto) (0.00-0.02) K/uL Glucose (70-99) mg/dl Lactate (0.4-2.0) mmol/L Alkaline Phosphatase (45-117) U/L Urine Ketones Trace H (Negative) Diagnostic Findings Abdomen/Pelvis CTA 03/22/21 17:52 CT ANGIOGRAM OF THE CHEST, ABDOMEN, AND PELVIS WITH IV CONTRAST CLINICAL HISTORY: Bradycardia. Epigastric abdominal pain. COMPARISON STUDY: Chest CT dated 03/06/2021. TECHNIQUE: Following the IV administration of 120 cc of Optiray 350, CT angiogram of the chest, abdomen, and pelvis was performed from the thoracic inlet to the proximal femora. Images are reviewed in the axial, sagittal, and coronal planes. 3-D MIPS images are created and assessed. IV contrast was administered without complication. A dose lowering technique was utilized adhering to the principles of ALARA. CT DOSE: 632.82 mGy.cm FINDINGS: CHEST: Thyroid: Imaged portions of the thyroid gland are normal in size and attenuation. Thoracic aorta: There is mild atherosclerotic calcification of the thoracic aort a, which is normal in course and caliber. The aortic arch demonstrates standard 3-vessel anatomy. No aneurysm or dissection is seen. Pulmonary vasculature: The main pulmonary arteries are mildly dilated suggesting pulmonary artery hypertension. There are no filling defects identified within the main, lobar, or segmental pulmonary arteries to suggest pulmonary embolus. Heart: The heart is mildly enlarged and without pericardial effusion. The coronary arteries are densely calcified. Lungs and pleural spaces: Mild emphysematous change is noted. There is no airspace consolidation typical for pneumonia or pleural effusion. Foci of parenchymal scarring/atelectasis are seen throughout both lungs. The trachea and central airways are clear. Diffuse peribronchial thickening is noted. There are scattered calcified granulomas. Mediastinum: There is no mediastinal lymphadenopathy. Julia: Clear. Axillae: There is no axillary lymphadenopathy. Bony thorax: The skeletal structures are osteopenic. No lytic or blastic lesions are identified. ABDOMEN AND PELVIS: Liver: The contrast-enhanced liver is normal in size, contour, and attenuation. There is no intrahepatic biliary ductal dilatation. Gallbladder: There are numerous calcified gallstones, with a 2.5 cm gallstone the region of gallbladder neck. Question mild infiltration around the gallbladder neck. Spleen: Normal in size and attenuation noting heterogeneous arterial phase enhancement. Pancreas: Unremarkable. Adrenal glands: There is mild nodular thickening of the adrenal glands. Kidneys: The contrast enhanced kidneys are normal in size and without hydronephrosis. The kidneys enhance symmetrically. Abdominal aorta and iliac arteries: There is moderate atherosclerotic calcification mild ectasia of the abdominal aorta. No aneurysm or dissection is seen. The abdominal aorta and iliac arteries are widely patent. Major branches of the abdominal aorta: The celiac trunk, superior mesenteric, and inferior mesenteric arteries are widely patent. Hepatic arterial anatomy is conventional. The splenic artery is patent. Single bilateral renal arteries are widely patent. Bowel: There is no bowel obstruction. The appendix is well-visualized and normal. Peritoneum: No intraperitoneal free air is identified. There is trace perisplenic ascites. Lymphadenopathy: Shotty subcentimeter retroperitoneal lymph nodes are nonspecific. No pathologically enlarged lymph nodes are identified in the abdomen or pelvis. Pelvic viscera: The prostate gland is mildly enlarged and heterogeneous. The bladder wall appears thickened and trabeculated suggesting chronic outlet obstruction. Skeletal structures: The skeletal structures are osteopenic. There is mild to moderate lumbosacral spondylosis. No lytic or blastic bony lesions are seen. IMPRESSION: 1. Unremarkable CT angiogram of the thoracic aorta and abdominal aorta. 2. There is no evidence of pulmonary embolus in the main, lobar, or segmental pulmonary arteries. 3. Mild cardiomegaly and mild emphysematous change. 4. There is no airspace consolidation typical for pneumonia or pleural effusion. 5. Diffuse peribronchial thickening suggests bronchitis/reactive airway disease. Clinical correlation will be required. 6. Cholelithiasis with a 2.5 cm gallstone the region of the gallbladder neck. Question faint surrounding infiltration. If there is clinical concern for acute cholecystitis a right upper quadrant ultrasound should be considered. 7. Unremarkable CT angiogram of the major branches of the abdominal aorta. 8. There is trace nonspecific perisplenic ascites. 9. The bladder wall appears thickened and trabeculated, likely representing the sequelae of chronic outlet obstruction. Correlate with urinalysis. 10. Additional findings as above. Electronically signed by: Juan Talbot M.D. 03/22/2021 6:56 PM Chest CTA 03/22/21 17:52 CT ANGIOGRAM OF THE CHEST, ABDOMEN, AND PELVIS WITH IV CONTRAST CLINICAL HISTORY: Bradycardia. Epigastric abdominal pain. COMPARISON STUDY: Chest CT dated 03/06/2021. TECHNIQUE: Following the IV administration of 120 cc of Optiray 350, CT angiogram of the chest, abdomen, and pelvis was performed from the thoracic inlet to the proximal femora. Images are reviewed in the axial, sagittal, and coronal planes. 3-D MIPS images are created and assessed. IV contrast was administered without complication. A dose lowering technique was utilized adhering to the principles of ALARA. CT DOSE: 632.82 mGy.cm FINDINGS: CHEST: Thyroid: Imaged portions of the thyroid gland are normal in size and attenuation. Thoracic aorta: There is mild atherosclerotic calcification of the thoracic aorta, which is normal in course and caliber. The aortic arch demonstrates standard 3-vessel anatomy. No aneurysm or dissection is seen. Pulmonary vasculature: The main pulmonary arteries are mildly dilated suggesting pulmonary artery hypertension. There are no filling defects identified within the main, lobar, or segmental pulmonary arteries to suggest pulmonary embolus. Heart: The heart is mildly enlarged and without pericardial effusion. The coronary arteries are densely calcified. Lungs and pleural spaces: Mild emphysematous change is noted. There is no airspace consolidation typical for pneumonia or pleural effusion. Foci of parenchymal scarring/atelectasis are seen throughout both lungs. The trachea and central airways are clear. Diffuse peribronchial thickening is noted. There are scattered calcified granulomas. Mediastinum: There is no mediastinal lymphadenopathy. Julia: Clear. Axillae: There is no axillary lymphadenopathy. Bony thorax: The skeletal structures are osteopenic. No lytic or blastic lesions are identified. ABDOMEN AND PELVIS: Liver: The contrast-enhanced liver is normal in size, contour, and attenuation. There is no intrahepatic biliary ductal dilatation. Gallbladder: There are numerous calcified gallstones, with a 2.5 cm gallstone the region of gallbladder neck. Question mild infiltration around the gallbladder neck. Spleen: Normal in size and attenuation noting heterogeneous arterial phase enhancement. Pancreas: Unremarkable. Adrenal glands: There is mild nodular thickening of the adrenal glands. Kidneys: The contrast enhanced kidneys are normal in size and without hydronephrosis. The kidneys enhance symmetrically. Abdominal aorta and iliac arteries: There is moderate atherosclerotic calcification mild ectasia of the abdominal aorta. No aneurysm or dissection is seen. The abdominal aorta and iliac arteries are widely patent. Major branches of the abdominal aorta: The celiac trunk, superior mesenteric, and inferior mesenteric arteries are widely patent. Hepatic arterial anatomy is conventional. The splenic artery is patent. Single bilateral renal arteries are widely patent. Bowel: There is no bowel obstruction. The appendix is well-visualized and normal. Peritoneum: No intraperitoneal free air is identified. There is trace perisplenic ascites. Lymphadenopathy: Shotty subcentimeter retroperitoneal lymph nodes are nonspecific. No pathologically enlarged lymph nodes are identified in the abdomen or pelvis. Pelvic viscera: The prostate gland is mildly enlarged and heterogeneous. The bladder wall appears thickened and trabeculated suggesting chronic outlet obstruction. Skeletal structures: The skeletal structures are osteopenic. There is mild to moderate lumbosacral spondylosis. No lytic or blastic bony lesions are seen. IMPRESSION: 1. Unremarkable CT angiogram of the thoracic aorta and abdominal aorta. 2. There is no evidence of pulmonary embolus in the main, lobar, or segmental pulmonary arteries. 3. Mild cardiomegaly and mild emphysematous change. 4. There is no airspace consolidation typical for pneumonia or pleural effusion. 5. Diffuse peribronchial thickening suggests bronchitis/reactive airway disease. Clinical correlation will be required. 6. Cholelithiasis with a 2.5 cm gallstone the region of the gallbladder neck. Question faint surrounding infiltration. If there is clinical concern for acute cholecystitis a right upper quadrant ultrasound should be considered. 7. Unremarkable CT angiogram of the major branches of the abdominal aorta. 8. There is trace nonspecific perisplenic ascites. 9. The bladder wall appears thickened and trabeculated, likely representing the sequelae of chronic outlet obstruction. Correlate with urinalysis. 10. Additional findings as above. Electronically signed by: Juan Talbot M.D. 03/22/2021 6:56 PM Medications Administered Sodium Chloride (Nss 1000ml) 1,000 mls @ 125 mls/hr IV .Q8H STA Stop: 03/23/21 01:14 Last Admin: 03/22/21 17:29 Dose: 125 mls/hr Documented by: [id number] Discontinued Medications Hydromorphone HCl (Hydromorphone Inj 0.5 Mg/0.5 Ml Syr) 0.5 mg IV NOW STA Stop: 03/22/21 17:16 Last Admin: 03/22/21 17:31 Dose: 0.5 mg Documented by: [id number] Hydromorphone HCl (Hydromorphone Inj 1 Mg/Ml Syringe) 1 mg IV NOW STA Stop: 03/22/21 18:45 Last Admin: 03/22/21 19:02 Dose: 1 mg Documented by: [id number] Hydromorphone HCl (Hydromorphone Inj 1 Mg/Ml Syringe) 1 mg IV NOW STA Stop: 03/22/21 19:47 Last Admin: 03/22/21 19:53 Dose: 1 mg Documented by: [id number] Cefoxitin Sodium (Mefoxin) 2,000 mg in 60 mls @ 100 mls/hr IV NOW STA Stop: 03/22/21 19:58 Last Admin: 03/22/21 19:49 Dose: 100 mls/hr Documented by: [id number] Ioversol (Optiray 350 500ml) 120 ml IV ONCE ONE Stop: 03/22/21 18:10 Last Admin: 03/22/21 18:13 Dose: 120 ml Documented by: [id number] Ondansetron HCl (Ondansetron Inj 2 Mg/Ml 2 Ml Vial) 4 mg IV NOW STA Stop: 03/22/21 17:16 Last Admin: 03/22/21 17:30 Dose: 4 mg Documented by: [id number] Home Medications atorvastatin 20 mg tablet 20 mg PO HS #90 tab 12/14/20 [Rx Confirmed 03/22/21] sildenafil 100 mg tablet 100 mg PO DAILY PRN #6 tab 01/22/21 [Rx Confirmed 03/22/21] lisinopril 5 mg tablet 5 mg PO DAILY #90 tab 02/23/21 [Rx Confirmed 03/22/21] Active Medications Sodium Chloride (Nss 1000ml) 1,000 mls @ 125 mls/hr IV .Q8H STA Stop: 03/23/21 01:14 Last Admin: 03/22/21 17:29 Dose: 125 mls/hr Documented by: ECG Additional Comments: Marked sinus bradycardia with occasional Premature ventricular complexes Abnormal ECG No previous ECGs available Code Status & VTE Plan Code Status CODE: FULL VTE: SCD's, Heparin VTE Prophylaxis Plan VTE Prophylaxis will be ordered: Yes Supervising Physician Co-Signing Physician Notes Patient seen and examined with ANJELICA, agree with his note above. Patient had a sudden onset of epigastric and right upper quadrant pain earlier today during family meeting. Patient was able to eat a hamburger without any issues and he was also able to hold down "large amounts "of water. Pain was quite severe and when patient presented to the emergency room. He was given 2.5 mg total of Dilaudid and had little pain at the time of our evaluation. He denied any fevers or chills. He is denying any chest pain shortness of breath. Of note, patient was found to be somewhat bradycardic during ER evaluation. Blood pressure stable. CTA of the chest was unremarkable, was found to have a 2.5 cm stone in the neck of the gallbladder with some mild fat stranding. Plan will be to admit for further work-up of possible acute cholecystitis. Ultrasound is pending. Consider MRCP depending on results. General surgery was contacted by the ER and is consulted for the further management. Patient was made n.p.o. and will be hydrated with lactated Ringer's for acute kidney injury. PG Care Time/CCT Total # of Minutes Spent Total Time Spent with Patient: Total time spent is greater than 50% in coordination of care (as documented) at patient's floor/unit and/or counseling patient: Coding Level of Care Code 68291 Initial Inpt Care Lvl 3 Diagnoses Cholelithiasis and cholecystitis without obstruction K80.00 Cholecystitis acuity: acute Cholelithiasis location: gallbladder Epigastric pain R10.13 Benign essential hypertension I10 Hypercholesterolemia E78.00 (1) Cholelithiasis and cholecystitis without obstruction Cholecystitis acuity: acute Cholelithiasis location: gallbladder Qualified Code(s): K80.00 - Calculus of gallbladder with acute cholecystitis without obstruction
[2021-03-22 20:52] LABS: Influenza A virus by PCR Negative (Neg); Influenza B virus by PCR Negative (Neg); RSV by PCR Negative (Neg); SARS CoV2 RNA(COVID-19) InHosp NEGATIVE (Negative)
--- NOTE | 2021-03-22 22:06 | Surgery Consultation ---
Date of Consultation March 22, 2021 Assessment & Plan (1) Cholelithiasis and cholecystitis without obstruction: pt is a 71 year-old male who presents to Er with 0.5 days history acute abdominal pain, IMP: acute abdominal pain, acute cholecystitis, with gallstone, Plan, base on HR 44, consult aircraft avionics technician for cardiac clearance pre-op, I recommend to do laparoscopic cholecystectomy possible open or cholangiogram tomorrow afternoon, D/W benefits, risks and alternatives of the surgery, pt and his understood, they agree with surgery, I answered all questions, iv antibiotic, cipro + flagyl, control pain, npo after MN, Thanks hospitalist admit the pt, for co-management, Present on Admission?: Yes (2) Bradycardia: Supervising Physician Co-Signing Physician Notes Patient seen and examined with DRILL HAND, agree with his note above. Patient had a sudden onset of epigastric and right upper quadrant pain earlier today during family meeting. Patient was able to eat a hamburger without any issues and he was also able to hold down "large amounts "of water. Pain was quite severe and when patient presented to the emergency room. He was given 2.5 mg total of Dilaudid and had little pain at the time of our evaluation. He denied any fevers or chills. He is denying any chest pain shortness of breath. Of note, patient was found to be somewhat bradycardic during ER evaluation. Blood pressure stable. CTA of the chest was unremarkable, was found to have a 2.5 cm stone in the neck of the gallbladder with some mild fat stranding. Plan will be to admit for further work-up of possible acute cholecystitis. Ultrasound is pending. Consider MRCP depending on results. General surgery was contacted by the ER and is consulted for the further management. Patient was made n.p.o. and will be hydrated with lactated Ringer's for acute kidney injury. History of Present Illness History of Present Illness 71 YOM with past medical history of HTN, previous smoker (quit in 1979), HLD, and seborrheic keratosis. Patient reports that he was at a birthday green party and out of now where he started getting a sharp aching pain to his epigastrium area. The patient points directly below his xiphoid process to localize the pain. The pain was constant pain and has remained constant level since then. This was associated with nausea without vomiting. He has had no dyspnea. The pain did not radiate to any other area. He last ate a hamburger at noon today and this did not change his pain. He had episode of diarrhea that was watery brown with no reports of blood or mucous in it. The patient feels as his pain is getting better following IV hydromorphone in the ER. During his initial work-up he was also found to be bradycardic in NSR. Patient normally is in the 70s per review of his outpatient apointments. There is no other ECG available for comparison. The patient had a CT scan of the abdomen done that revealed a 2.5 cm gallstone in the neck of the gall bladder, ultrasound is pending for follow up. Dr. Andrade from General Surgery was consulted by the EMD Dr. Baker. He also received 2GM Cefoxitin, and 1 L 0.9 saline for a lactate of 3.5. He is hemodynamically stable, no other evidence of organ dysfunction, normal LFT's and lipase. He will be admitted [facility] for telemetry monitoring. I ( Alfred Andrade MD ) got a call for consult acute cholecystitis, with gallstone, I reviewed pt's H/P, labs, CT scan and U/S study with pt and his , pt is still have epigastric pain, with nausea nad vomiting,pt denies fever, no diarrhea, no chest pain, now HR 44. Allergies Allergy/AdvReac Type Severity Reaction Status Date / Time Penicillins Allergy Mild Unknown Verified 03/22/21 17:35 Home Medications Medication Instructions Recorded Confirmed Type atorvastatin 20 mg tablet 20 mg PO HS #90 tab 10/27/20 03/22/21 Rx sildenafil 100 mg tablet 100 mg PO DAILY PRN #6 tab 01/22/21 03/22/21 Rx lisinopril 5 mg tablet 5 mg PO DAILY #90 tab 02/23/21 03/22/21 Rx Past Med/Surg History Medical History Elevated blood pressure reading without diagnosis of hypertension Hypercholesterolemia Vitamin B12 deficiency Surgical History No history of previous surgery Family History Mother Myocardial infarction Pancreatic cancer Father Parkinsons Denies family history of Ovarian cancer Prostate cancer Breast cancer Colorectal cancer Social History Smoking Status: Former smoker Tobacco Type: Cigarettes Age Started Using Tobacco: 22; Age Quit Using Tobacco: 50; packs per day: 0.5; Years Smoked: 28; Cigarettes Per Day: 10; Number of Years Since Quit: 20; Second Hand Exposure: No; Hx Alcohol Use: Yes Alcohol type: beer Alcohol Intake Frequency Comment: "6 beers a week" Hx Substance Use: No Preferred Language: Latvian Communication Ability: Effective Visual Impairment: No Limitations Hearing Ability: Normal marital status: Current Living Situation: Spouse 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 do You have: 2 Feels Safe at Home: Yes Childhood Exposure to Second-Hand Smoke: Yes caffeine: Yes during the past year weight has: increased > 10 lbs Dental Care, Regularly: Yes Physical Activity Frequency: 3-4 Times per Week Seatbelt Use: always Sunscreen Use: Yes Assistive Devices: Glasses Review of Systems Review of Systems: REVIEW OF SYSTEMS: Constitutional: No fever, sweats or chills Eyes: No diplopia, no worsening or blurred vision ENT: normal hearing, no trouble swallowing Respiratory: No cough, sputum, dyspnea at rest or on exertion Cardiovascular: No chest pain, tightness or palpitations Abdomen: (+) epigastric pain, nausea, diarrhea, NO vomiting, or constipation : (+) urinary frequency, (-) Pain, or feeling of incomplete bladder emptying Musculoskeletal: No joint pain, calf pain, swelling Neurologic: No weakness, numbness/tingling, or balance problems Psychiatric: No anxiety or depression Skin: No rash or itch Allergies Allergy/AdvReac Type Severity Reaction Status Date / Time Penicillins Allergy Mild Unknown Verified 03/22/21 17:35 Home Medications Medication Instructions Recorded Confirmed Type atorvastatin 20 mg tablet 20 mg PO HS #90 tab 10/27/20 03/22/21 Rx sildenafil 100 mg tablet 100 mg PO DAILY PRN #6 tab 01/22/21 03/22/21 Rx lisinopril 5 mg tablet 5 mg PO DAILY #90 tab 02/23/21 03/22/21 Rx Patient History Medical History Elevated blood pressure reading without diagnosis of hypertension Hypercholesterolemia Vitamin B12 deficiency Surgical History No history of previous surgery Family History Mother Myocardial infarction Pancreatic cancer Father Parkinsons Denies family history of Ovarian cancer Prostate cancer Breast cancer Colorectal cancer Social History Smoking Status: Former smoker Tobacco Type: Cigarettes Age Started Using Tobacco: 22; Age Quit Using Tobacco: 50; packs per day: 0.5; Years Smoked: 28; Cigarettes Per Day: 10; Number of Years Since Quit: 20; Second Hand Exposure: No; Hx Alcohol Use: Yes Alcohol type: beer Alcohol Intake Frequency Comment: "6 beers a week" Hx Substance Use: No Preferred Language: Latvian Communication Ability: Effective Visual Impairment: No Limitations Hearing Ability: Normal marital status: Current Living Situation: Spouse 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 do 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 have: 2 Feels Safe at Home: Yes Childhood Exposure to Second-Hand Smoke: Yes caffeine: Yes during the past year weight has: increased > 10 lbs Dental Care, Regularly: Yes Physical Activity Frequency: 3-4 Times per Week Seatbelt Use: always Sunscreen Use: Yes Assistive Devices: Glasses Physical Exam Constitutional: WD/WN, vitals as above well developed and well nourished Eyes: PERRL, conjunctivae normal, anicteric sclerae ENMT: external ear and nose normal, oropharynx normal Neck: trachea midline, no thyromegaly Respiratory: normal respiratory effort, lungs clear to auscultation normal respiratory effort Cardiovascular: RRR, no murmur, no edema Rate/Rhythm: regular rhythm and + bradycardic Heart Sounds: normal S1 and normal S2 Gastrointestinal (Abdomen): Percussion/Palpation: + abdomen tender and abdomen soft mild tenderness at epigastric area, no rebound pain, no distend, BS + Musculoskeletal: no cyanosis or clubbing, extremities motor strength 5/5 Skin: no rashes, warm and dry Neurologic: awake Psychiatric: Orientation: alert and oriented x 3 Results & Data ([facility]) Vital Signs (Past 12 Hours) Vital Signs Temp Pulse Resp BP Pulse Ox 03/22/21 20:01 58 L 14 96 03/22/21 20:00 59 L 13 152/96 H 97 03/22/21 19:30 46 L 9 L 138/67 98 03/22/21 19:05 58 L 13 139/75 99 03/22/21 19:00 52 L 42 H 91 03/22/21 18:50 53 L 18 92 03/22/21 18:40 45 L 10 L 96 03/22/21 18:30 46 L 10 L 165/81 H 98 03/22/21 18:23 48 L 21 153/76 H 98 03/22/21 18:22 43 L 17 96 03/22/21 18:01 140/78 03/22/21 17:50 43 L 14 97 03/22/21 17:40 48 L 15 97 03/22/21 17:31 44 L 15 150/77 H 98 03/22/21 17:30 42 L 17 96 03/22/21 17:26 41 L 20 99 03/22/21 17:22 42 L 13 170/80 H 98 03/22/21 17:08 36.5 C 49 L 21 176/76 H 98 Laboratory Results Abnormal lab results 03/22/21 03/22/21 03/22/21 Range/Units 17:24 17:24 17:24 Lymph # (Auto) 0.78 L (1.2-3.4) K/uL Immature Gran # (Auto) 0.03 H (0.00-0.02) K/uL Glucose 153 H (70-99) mg/dl Lactate 3.5 H* (0.4-2.0) mmol/L Alkaline Phosphatase 207 H (45-117) U/L Urine Ketones (Negative) 03/22/21 Range/Units 18:40 Lymph # (Auto) (1.2-3.4) K/uL Immature Gran # (Auto) (0.00-0.02) K/uL Glucose (70-99) mg/dl Lactate (0.4-2.0) mmol/L Alkaline Phosphatase (45-117) U/L Urine Ketones Trace H (Negative) Diagnostic Findings CT ANGIOGRAM OF THE CHEST, ABDOMEN, AND PELVIS WITH IV CONTRAST CLINICAL HISTORY: Bradycardia. Epigastric abdominal pain. COMPARISON STUDY: Chest CT dated 03/06/2021. TECHNIQUE: Following the IV administration of 120 cc of Optiray 350, CT angiogram of the chest, abdomen, and pelvis was performed from the thoracic inlet to the proximal femora. Images are reviewed in the axial, sagittal, and coronal planes. 3-D MIPS images are created and assessed. IV contrast was administered without complication. A dose lowering technique was utilized adhering to the principles of ALARA. CT DOSE: 632.82 mGy.cm FINDINGS: CHEST: Thyroid: Imaged portions of the thyroid gland are normal in size and attenuation. Thoracic aorta: There is mild atherosclerotic calcification of the thoracic aorta, which is normal in course and caliber. The aortic arch demonstrates standard 3-vessel anatomy. No aneurysm or dissection is seen. Pulmonary vasculature: The main pulmonary arteries are mildly dilated suggesting pulmonary artery hypertension. There are no filling defects identified within the main, lobar, or segmental pulmonary arteries to suggest pulmonary embolus. Heart: The heart is mildly enlarged and without pericardial effusion. The coronary arteries are densely calcified. Lungs and pleural spaces: Mild emphysematous change is noted. There is no airspa ce consolidation typical for pneumonia or pleural effusion. Foci of parenchymal scarring/atelectasis are seen throughout both lungs. The trachea and central airways are clear. Diffuse peribronchial thickening is noted. There are scattered calcified granulomas. Mediastinum: There is no mediastinal lymphadenopathy. Julia: Clear. Axillae: There is no axillary lymphadenopathy. Bony thorax: The skeletal structures are osteopenic. No lytic or blastic lesions are identified. ABDOMEN AND PELVIS: Liver: The contrast-enhanced liver is normal in size, contour, and attenuation. There is no intrahepatic biliary ductal dilatation. Gallbladder: There are numerous calcified gallstones, with a 2.5 cm gallstone the region of gallbladder neck. Question mild infiltration around the gallbladder neck. Spleen: Normal in size and attenuation noting heterogeneous arterial phase enhancement. Pancreas: Unremarkable. Adrenal glands: There is mild nodular thickening of the adrenal glands. Kidneys: The contrast enhanced kidneys are normal in size and without hydronephrosis. The kidneys enhance symmetrically. Abdominal aorta and iliac arteries: There is moderate atherosclerotic calcification mild ectasia of the abdominal aorta. No aneurysm or dissection is seen. The abdominal aorta and iliac arteries are widely patent. Major branches of the abdominal aorta: The celiac trunk, superior mesenteric, and inferior mesenteric arteries are widely patent. Hepatic arterial anatomy is conventional. The splenic artery is patent. Single bilateral renal arteries are widely patent. Bowel: There is no bowel obstruction. The appendix is well-visualized and normal. Peritoneum: No intraperitoneal free air is identified. There is trace perisplenic ascites. Lymphadenopathy: Shotty subcentimeter retroperitoneal lymph nodes are nonspecific. No pathologically enlarged lymph nodes are identified in the abdomen or pelvis. Pelvic viscera: The prostate gland is mildly enlarged and heterogeneous. The bladder wall appears thickened and trabeculated suggesting chronic outlet obstruction. Skeletal structures: The skeletal structures are osteopenic. There is mild to moderate lumbosacral spondylosis. No lytic or blastic bony lesions are seen. IMPRESSION: 1. Unremarkable CT angiogram of the thoracic aorta and abdominal aorta. 2. There is no evidence of pulmonary embolus in the main, lobar, or segmental pulmonary arteries. 3. Mild cardiomegaly and mild emphysematous change. 4. There is no airspace consolidation typical for pneumonia or pleural effusion. 5. Diffuse peribronchial thickening suggests bronchitis/reactive airway disease. Clinical correlation will be required. 6. Cholelithiasis with a 2.5 cm gallstone the region of the gallbladder neck. Question faint surrounding infiltration. If there is clinical concern for acute cholecystitis a right upper quadrant ultrasound should be considered. 7. Unremarkable CT angiogram of the major branches of the abdominal aorta. 8. There is trace nonspecific perisplenic ascites. 9. The bladder wall appears thickened and trabeculated, likely representing the sequelae of chronic outlet obstruction. Correlate with urinalysis. 10. Additional findings as above. U/S report pending, I reviewed U/S - large gallstone at neck of gallbladder with wall thickening edema, cholecystitis (1) Cholelithiasis and cholecystitis without obstruction Cholelithiasis location: gallbladder Cholecystitis acuity: acute Qualified Code(s): K80.00 - Calculus of gallbladder with acute cholecystitis without obstruction
[2021-03-22] MEDS ORDERED: HYDROmorphone INJ 0.5 MG/0.5 ML SYR IV PRN (22:35)
[2021-03-22] MEDS ORDERED: ONDANSETRON INJ 2 MG/ML 2 ML VIAL IV PRN (22:35)
[2021-03-22] MEDS: LACTATED RINGER'S 1,000 ML IV SCH (23:02)
[2021-03-22] MEDS: HEPARIN SOD 5,000 UNIT/0.5 ML VIAL SQ SCH (23:54)
[2021-03-22] MEDS: metroNIDAZOLE 500 MG/100 ML BAG IV SCH (23:55)
[2021-03-23] MEDS: cefOXitin 2,000 MG/60 ML BAG IV SCH ×4 (02:11→20:42)
[2021-03-23] MEDS: metroNIDAZOLE 500 MG/100 ML BAG IV SCH ×3 (06:02→21:27)
[2021-03-23] MEDS: HEPARIN SOD 5,000 UNIT/0.5 ML VIAL SQ SCH (06:03)
[2021-03-23 06:46] LABS: Hematocrit (blood only) 39.6 % (42-52); Hemoglobin 13.2 g/dL (14.0-18.0); Immature Granulocytes # (auto) 0.02 K/uL (0.00-0.02); Immature Granulocytes % (auto) 0.2 %; Lymphocytes # (auto) 0.58 K/uL (1.2-3.4); Lymphocytes % (auto) 6.5 %; Mean Corpuscular Hemoglobin 31.1 pg (25-34); Mean Corpuscular Hgb Conc 33.3 g/dL (32-36); Mean Corpuscular Volume 93.2 fL (80-100); Mean Platelet Volume 8.8 fL (7.4-10.4); Monocytes # (auto) 0.91 K/uL (0.11-0.59); Monocytes % (auto) 10.3 %; Neutrophils # (auto) 7.35 K/uL (1.4-6.5); Platelet Count 235 K/uL (130-400); RDW Coefficient of Variation 13.6 % (11.5-14.5); RDW Standard Deviation 46.5 fL (36.4-46.3); Red Blood Count 4.25 M/uL (4.7-6.1); White Blood Count 8.86 K/uL (4.8-10.8)
--- NOTE | 2021-03-23 06:58 | Ultrasound Report ---
US gallbladder CLINICAL HISTORY: Cholelithiasis. Epigastric pain COMPARISON STUDY: CT scan performed the same day FINDINGS: The pancreas is nonvisualized due to overlying bowel gas shadowing. No focal hepatic masses are visualized. There are multiple gallstones. There is no gallbladder wall thickening, and no evide nce of pericholecystic fluid. There is, tail artifact arising from the gallbladder wall consistent wi th adenomyomatosis. There is no ductal dilatation. The common bile duct measures 3 mm. There is no ri ght-sided hydronephrosis. IMPRESSION: 1. Cholelithiasis. No evidence of wall thickening. No evidence of pericholecystic fluid 2. 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 2. No ductal dilatation. The common bile duct measures 3 mm. ACT 112: Negative or not required by law. Electronically signed by: Meño Banegas M.D. 03/23/2021 6:57 AM
[2021-03-23 07:38] LABS: Albumin Level 3.2 gm/dl (3.4-5.0); BUN Creatinine Ratio 14.3 (10-20); Bilirubin,Total 0.6 mg/dl (0.2-1); Calcium 9.9 mg/dl (8.5-10.1); Creatinine Clr Calc Pharmacy 67.6 ml/min; Est GFR (African American) 90.7; Est GFR (Non-African American) 78.2; Globulin 3.2 gm/dl (2.5-4.0); Potassium 4.3 mmol/L (3.5-5.1); Total Protein 6.4 gm/dl (6.4-8.2)
--- NOTE | 2021-03-23 09:44 | Cardiology Consultation ---
Date of Consultation March 23, 2021 Assessment & Plan (1) Symptomatic cholelithiasis: (2) Bradycardia: Presentation Controlled clinical work-up thus far is suggestive of acute symptomatic cholecystitis.Historically, the patient's heart rate is typically in the 60s when he takes his home blood pressure with his home cuff. Significant bradycardia observed on presentation last evening and overnight last night likely due to high vagal tone related to his cholecystitis. Troponin negative x2, at present, he does not have signs or symptoms suggestive of angina, nonischemic EKG this morning. At present, I recommend proceeding to operative intervention with cholecystectomy without further cardiac testing with an estimated low risk of perioperative cardiac complication. Case discussed with Dr Andrade of General Surgery. History of Present Illness Attending Physician: Zeyad Esquivel MD History of Present Illness Rubén Smith is a 71 year old male seen in cardiology consultation per thre request of Dr Pedraza for the evaluation of abdominal pain and sinus bradycardia. Patient denies any past cardiac history with exception of being on full dose of lisinopril for hypertension and atorvastatin for dyslipidemia. He states that he was in his normal state of health until approximately 12 noon yesterday. He was at a family birthday gathering near [place], and prior to eating any of the food, he started experiencing right upper quadrant abdominal discomfort. He had part of a hamburger, he did not have any cake, and felt uncomfortable. He is the bathroom with no relief in his symptoms. While driving back from [place], his discomfort increased to a degree of 8/10 intensity and he sought care in the emergency room. Work-up thus far is notable for cholelithiasis with a 2.5 cm gallstone in the region of gallbladder neck. He was seen by general surgery and is felt that he has acute cholecystitis. Cardiology was consulted due to findings of sinus bradycardia last evening and again overnight. Currently, sinus rhythm at 53 bpm is noted on telemetry. Overnight last night, his heart rate was as low as 35 bpm with no evidence of AV block. At 1755, similar sinus bradycardia in the mid 30s noted. The patient noted that at that time, he was having more severe abdominal discomfort, 8/10, it is down to a 12/10 at present and he is comfortable. Most recent EKG performed this morning reveals no ischemic changes and troponin has been negative x2. He notes no associated shortness of breath, chest discomfort, or heavy perspiration. 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 [employer] Allergies Allergy/AdvReac Type Severity Reaction Status Date / Time Penicillins Allergy Mild Unknown Verified 03/22/21 17:35 Home Medications Medication Instructions Recorded Confirmed Type atorvastatin 20 mg tablet 20 mg PO HS #90 tab 10/27/20 03/22/21 Rx sildenafil 100 mg tablet 100 mg PO DAILY PRN #6 tab 01/22/21 03/22/21 Rx lisinopril 5 mg tablet 5 mg PO DAILY #90 tab 02/23/21 03/22/21 Rx Patient History Medical History Elevated blood pressure reading without diagnosis of hypertension Hypercholesterolemia Vitamin B12 deficiency Surgical History No history of previous surgery Family History Mother Myocardial infarction Pancreatic cancer Father Parkinsons Denies family history of Ovarian cancer Prostate cancer Breast cancer Colorectal cancer Social History Smoking Status: Former smoker Tobacco Type: Cigarettes Age Started Using Tobacco: 22; Age Quit Using Tobacco: 50; packs per day: 0.5; Years Smoked: 28; Cigarettes Per Day: 10; Smoking End Date: 1979; Number of Years Since Quit: 20; Second Hand Exposure: No; Do You Dip or Chew Tobacco: No; Hx Alcohol Use: Yes Alcohol type: beer Alcohol Intake Frequency Comment: "6 beers a week" Hx Substance Use: No Preferred Language: [place] Communication Ability: Effective Visual Impairment: No Limitations Hearing Ability: Normal Dry Molder Required: No Beliefs That Will Affect Care: None marital status: Current Living Situation: Spouse 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 status: 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 How many Children do You have: 2 Other Information That Helps Us Care for You: No Feels Safe at Home: Yes Safety Concerns: Feels Safe At This Time Childhood Exposure to Second-Hand Smoke: Yes caffeine: Yes during the past year weight has: increased > 10 lbs Dental Care, Regularly: Yes Physical Activity Frequency: 3-4 Times per Week Seatbelt Use: always Sunscreen Use: Yes Assistive Devices: None Review of Systems Review of Systems: All systems reviewed & are unremarkable except as noted in HPI & below Physical Exam Physical Exam: Temp Pulse Resp BP Pulse Ox 37.0 C 59 L 18 109/53 L 95 03/23/21 07:00 03/23/21 09:00 03/23/21 07:00 03/23/21 07:00 03/23/21 07:00 Constitutional: WD/WN, vitals as above Respiratory: normal respiratory effort, lungs clear to auscultation Cardiovascular: RRR, no murmur, no edema Gastrointestinal (Abdomen): Reproducible right upper quadrant pain on palpation Neurologic: PERRL, EOMI, accommodation nl, no face palsy, no dysarthria Results & Data ([facility]) Vital Signs (Past 12 Hours) Vital Signs Temp Pulse Pulse Resp BP BP Pulse Ox 03/23/21 09:00 59 L 03/23/21 07:00 37.0 C 79 18 109/53 L 95 03/23/21 03:38 36.9 C 44 L 20 110/58 L 93 03/22/21 23:45 132/75 03/22/21 23:00 36.5 C 48 L 18 178/90 H 181/78 H 99 Laboratory Results Cardiac Enzymes 03/22/21 03/22/21 03/23/21 Range/Units 17:24 23:41 06:25 AST 23 20 (15-37) U/L Troponin I < 0.015 < 0.015 (0-0.045) ng/ml CBC 03/22/21 03/23/21 Range/Units 17:24 06:25 WBC 6.89 8.86 (4.8-10.8) K/uL RBC 4.76 4.25 L (4.7-6.1) M/uL Hgb 14.9 13.2 L (14.0-18.0) g/dL Hct 43.1 39.6 L (42-52) % Plt Count 247 235 (130-400) K/uL Neut # (Auto) 5.73 7.35 H (1.4-6.5) K/uL Lymph # (Auto) 0.78 L 0.58 L (1.2-3.4) K/uL Wirt # (Auto) 0.32 0.91 H (0.11-0.59) K/uL Eos # (Auto) 0.02 0.00 (0-0.5) K/uL Baso # (Auto) 0.01 0.00 (0-0.2) K/uL Comprehensive Metabolic Panel 03/22/21 03/23/21 Range/Units 17:24 06:25 Sodium 137 138 (136-145) mmol/L Potassium 3.7 4.3 D (3.5-5.1) mmol/L Chloride 103 104 (98-107) mmol/L Carbon Dioxide 26 29 (21-32) mmol/L BUN 14 14 (7-18) mg/dl Creatinine 1.05 0.97 (0.6-1.4) mg/dl Glucose 153 H 120 H (70-99) mg/dl Calcium 10.1 9.9 (8.5-10.1) mg/dl AST 23 20 (15-37) U/L ALT 43 42 (12-78) U/L Alkaline Phosphatase 207 H 218 H (45-117) U/L Total Protein 7.7 6.4 (6.4-8.2) gm/dl Albumin 3.9 3.2 L (3.4-5.0) gm/dl Intake and Output 03/22/21 03/23/21 03/23/21 22:59 06:59 14:59 Intake Total 60 / 1220 1160 / 1220 160 / 160 Output Total 300 / 300 Balance 60 / 920 860 / 920 160 / 160 Intake: IV 60 / 1220 1160 / 1220 160 / 160 Sodium Chloride 0.9% 1000ML 1, 1000 / 1000 000 ml @ 125 mls/hr IV .Q8H STA Rx#:[id number] cefOXitin 2,000 mg In 60 ml @ 60 / 120 60 / 120 60 / 60 100 mls/hr IV Q6H [facility] Rx#: [id number] metroNIDAZOLE 500 mg In 100 ml 100 / 100 100 / 100 @ 100 mls/hr IV Q8 [facility] Rx#: [id number] Oral 0 / 0 Output: Urine 300 / 300 Other: # Unmeasured Voids 0 Weight 80.1 kg 78.3 kg Weight Measurement Method Standing Scale Diagnostic Findings EKG performed 03/23/2021 at 5:49 AM reveals sinus bradycardia 59 bpm, otherwise normal EKG. EKG performed 03/22/2021 at 1716 revealed sinus bradycardia at 39 bpm with occasional PVCs, borderline first-degree AV block, ME interval 190 ms.
--- NOTE | 2021-03-23 13:52 | Hospitalist Progress Note ---
Date of Service March 23, 2021 Assessment & Plan (1) Cholelithiasis and cholecystitis without obstruction: Cholelithiasis with a 2.5 cm gallstone the region of the gallbladder neck. Planned cholecystectomy today. - RUQ US: no evidence of wall thickening. - NPO pending surgery - Continue Cefoxitin and metronidazole - Blood Cultures - pending - Lactate- 3.5, was not repeated on admission. - No WBC, qSOFA- 1, SIRS-1 on admission - Continue IV fluids - Appreciate surgery consult - planning on cholecystectomy today (2) Epigastric pain: RUQ, spigastric pain consistent with gallstones as above. (3) Benign essential hypertension: Hold lisinopril perioperatively - Hydralazine PRN for sBP >180 (4) Hypercholesterolemia: Continue atorvastatin 20 mg - No acute needs (5) Bradycardia: Serial troponin negative. Appreciate cardiology consult - suspected secondary to high vagal tone in setting of cholelithiasis as above. Admission and Anticipated Discharge Date Admission Date: March 22, 2021 Subjective Ongoing abdominal pain in RUQ, no radiation, severity 5/10, constant, improved since admission. No fevers or chills. Review of Systems Review of Systems: All systems reviewed & are unremarkable except as noted in HPI & below Physical Exam Constitutional: WD/WN, vitals as above Eyes: + anicteric sclerae; normal pupil size Respiratory: normal respiratory effort, lungs clear to auscultation Cardiovascular: RRR, no murmur, no edema Gastrointestinal (Abdomen): Inspection/Auscultation: normal bowel sounds Percussion/Palpation: + abdomen tender (RUQ pain) and abdomen soft; no guarding and abdomen not rigid Musculoskeletal: no cyanosis or clubbing, extremities motor strength 5/5 Skin: no rashes, warm and dry Neurologic: moves all extremities and awake; not confused Psychiatric: A+Ox3, euthymic affect Results & Data Results & Data ([facility]) Vital Signs (Past 12 Hours) Vital Signs Temp Pulse Pulse Resp BP Pulse Ox 03/23/21 11:00 37.0 C 48 L 18 124/60 100 03/23/21 09:00 59 L 03/23/21 07:00 37.0 C 79 18 109/53 L 95 03/23/21 03:38 36.9 C 44 L 20 110/58 L 93 PG Care Time/CCT Total # of Minutes Spent Total Time Spent with Patient: Total time spent is greater than 50% in coordination of care (as documented) at patient's floor/unit and/or counseling patient: Coding Level of Care Code 78459 Subseq Hosp Care Lvl 2 Diagnoses Cholelithiasis and cholecystitis without obstruction K80.00 Cholecystitis acuity: acute Cholelithiasis location: gallbladder Epigastric pain R10.13 Benign essential hypertension I10 Hypercholesterolemia E78.00 Bradycardia R00.1 (1) Cholelithiasis and cholecystitis without obstruction Cholecystitis acuity: acute Cholelithiasis location: gallbladder Qualified Code(s): K80.00 - Calculus of gallbladder with acute cholecystitis without obstruction
[2021-03-23] MEDS ORDERED: hydrALAZINE HCL 20 MG/ML VIAL IV PRN (14:07)
--- NOTE | 2021-03-23 14:21 | Anesthesiology Consultation ---
Date of Service March 23, 2021 Assessment & Plan Chart Review Chart Review: Acceptable Risk for Surgery Consults Requested none History Surgery Operation Date: 03/23/21 14:25 Proposed Procedures p Laparoscopic Cholecystectomy - Alfred Andrade MD Height/Weight Height: 5 ft 8 in Weight: 78.3 kg Allergies Allergy/AdvReac Type Severity Reaction Status Date / Time Penicillins Allergy Mild Unknown Verified 03/22/21 17:35 Medications Home Medications Medication Instructions Recorded Confirmed Last Taken atorvastatin 20 mg tablet 20 mg PO HS #90 tab 10/27/20 03/22/21 Unknown sildenafil 100 mg tablet 100 mg PO DAILY PRN #6 tab 01/22/21 03/22/21 Unknown lisinopril 5 mg tablet 5 mg PO DAILY #90 tab 02/23/21 03/22/21 Unknown Active Medications Generic Name Dose Route Start Last Admin Trade Name Freq PRN Reason Stop Dose Admin Heparin Sodium (Porcine) 5,000 units 03/22/21 22:35 03/23/21 06:03 Heparin Sod 5,000 Unit/0.5 Ml Vial SQ 04/21/21 22:34 Not Given Q8 EDWARD Hydromorphone HCl 0.5 mg 03/22/21 22:35 03/22/21 23:57 Hydromorphone Inj 0.5 Mg/0.5 Ml Syr IV 04/05/21 22:34 0.5 mg Q4H PRN Administration Pain Lactated Ringer's 1,000 mls @ 80 mls/hr 03/22/21 22:35 03/22/21 23:02 Lr IV 04/21/21 22:34 80 mls/hr .[id number] EDWARD Administration Cefoxitin Sodium 2,000 mg in 60 mls @ 100 mls/hr 03/23/21 02:00 03/23/21 08:45 Mefoxin IV 04/02/21 01:59 Infused Q6H EDWARD Infusion Metronidazole 500 mg in 100 mls @ 100 mls/hr 03/22/21 23:15 03/23/21 07:02 Flagyl IV 04/01/21 23:14 Infused Q8 EDWARD Infusion Ondansetron HCl 4 mg 03/22/21 22:35 03/22/21 23:58 Ondansetron Inj 2 Mg/Ml 2 Ml Vial IV 04/21/21 22:34 4 mg Q6H PRN Administration Nausea Past Medical History Medical History Elevated blood pressure reading without diagnosis of hypertension Hypercholesterolemia Vitamin B12 deficiency Past Family History Family History Mother Myocardial infarction Pancreatic cancer Father Parkinsons Denies family history of Ovarian cancer Prostate cancer Breast cancer Colorectal cancer Past Surgical History Surgical History No history of previous surgery Social History Smoking Status: Former smoker Smoking cigarettes per day: 10 Do You Dip or Chew Tobacco: No Smoking End Date: 1979 Hx Alcohol Use: Yes Alcohol type: beer alcohol intake frequency: 0-2 drinks per day Alcohol Intake Frequency Comment: 1 Beer q Day Hx Substance Use: No Physical Exam Vital Signs Last Vital Signs Temp 37.0 C 03/23/21 11:00 Pulse 48 L 03/23/21 11:00 Resp 18 03/23/21 11:00 BP 124/60 03/23/21 11:00 Pulse Ox 100 03/23/21 11:00 Testing Laboratory Results 03/23/21 06:25 03/23/21 06:25 Urine Color Yellow 03/22/21 18:40 Urine Appearance Clear (Clear) 03/22/21 18:40 Urine pH 5.5 (4.5-7.5) 03/22/21 18:40 Ur Specific [place] 1.023 (1.000-1.030) 03/22/21 18:40 Urine Protein Negative (Negative) 03/22/21 18:40 Urine Glucose (UA) Negative (Negative) 03/22/21 18:40 Urine Ketones Trace (Negative) H 03/22/21 18:40 Urine Nitrite Negative (Negative) 03/22/21 18:40 Ur Leukocyte Esterase Negative (Negative) 03/22/21 18:40
[2021-03-23] MEDS: LACTATED RINGER'S 1,000 ML IV SCH (14:25)
[2021-03-23] MEDS ORDERED: CIPROFLOXACIN / D5W 400 MG/200 ML BAG IV SCH (15:00)
[2021-03-23] MEDS ORDERED: MIDAZOLAM HCL 1 MG/ML 2ML VIAL ONE (15:01)
[2021-03-23] MEDS ORDERED: fentaNYL citrate 100 MCG/2 ML VIAL ONE ×3 (15:01→17:31)
[2021-03-23] MEDS ORDERED: DEXAMETHASONE SOD INJ 4 MG/ML VIAL ONE (15:02)
[2021-03-23] MEDS ORDERED: GLYCOPYRROLATE 0.2 MG/ML VIAL ONE (15:02)
[2021-03-23] MEDS ORDERED: ONDANSETRON INJ 2 MG/ML 2 ML VIAL ONE (15:02)
[2021-03-23] MEDS ORDERED: ROCURONIUM BROMIDE 10 MG/ML 5 ML VIAL IV ONE ×3 (15:02→17:31)
[2021-03-23] MEDS ORDERED: NEOSTIGMINE METHYLSULFATE 5 MG/5 ML SYR ONE (15:02)
[2021-03-23] MEDS ORDERED: PROPOFOL IV EMULSION 10 MG/ML 20 ML VIAL IV ONE (15:02)
[2021-03-23] MEDS ORDERED: HYDROmorphone INJ 1 MG/ML SYRINGE IV PRN (15:07)
[2021-03-23] MEDS ORDERED: PHENYLEPHRINE 100MCG/ML 5ML SYR IV PRN (15:07)
[2021-03-23] MEDS ORDERED: fentaNYL citrate 100 MCG/2 ML VIAL IV PRN (15:07)
[2021-03-23] MEDS ORDERED: ONDANSETRON INJ 2 MG/ML 2 ML VIAL IV PRN (15:07)
[2021-03-23] MEDS ORDERED: ATROPINE SULFATE 0.1 MG/ML 10ML SYR IV PRN (15:07)
[2021-03-23] MEDS ORDERED: LABETALOL HCL IV 5 MG/ML 20ML IV PRN (15:07)
[2021-03-23] MEDS ORDERED: MEPERIDINE HCL 25 MG/ML CARP/VIAL IV PRN (15:07)
[2021-03-23] MEDS ORDERED: ePHEDrine sulfate 50 MG/ML AMP IV PRN (15:07)
--- NOTE | 2021-03-23 15:07 | History & Physical Bridge Note ---
Date of Service March 23, 2021 History & Physical Bridge Note I have examined the patient, reviewed the History & Physical and in the interval since the performance of the History & Physical I have noted the following changes of clinical significance: no changes noted Supervising Physician Co-Signing Physician Notes Patient seen and examined with ANJELICA, agree with his note above. Patient had a sudden onset of epigastric and right upper quadrant pain earlier today during family meeting. Patient was able to eat a hamburger without any issues and he was also able to hold down "large amounts "of water. Pain was quite severe and when patient presented to the emergency room. He was given 2.5 mg total of Dilaudid and had little pain at the time of our evaluation. He denied any fevers or chills. He is denying any chest pain shortness of breath. Of note, patient was found to be somewhat bradycardic during ER evaluation. Blood pressure stable. CTA of the chest was unremarkable, was found to have a 2.5 cm stone in the neck of the gallbladder with some mild fat stranding. Plan will be to admit for further work-up of possible acute cholecystitis. Ultrasound is pending. Consider MRCP depending on results. General surgery was contacted by the ER and is consulted for the further management. Patient was made n.p.o. and will be hydrated with lactated Ringer's for acute kidney injury.
[2021-03-23] MEDS ORDERED: LIDOCAINE 1% LOCAL 20 ML VIAL ONE (15:27)
[2021-03-23] MEDS ORDERED: BUPIVACAINE 0.5 % 5 MG/1 ML MPF 30ML VIAL ONE (15:27)
[2021-03-23] MEDS ORDERED: BACITRACIN OINT 15 GM TUBE ONE (15:27)
[2021-03-23] MEDS ORDERED: LIDOCAINE 2% 2 ML VIAL/AMP(20MG/ML) INFIL ONE (16:37)
--- NOTE | 2021-03-23 17:54 | Post Operative Brief Note ---
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
--- NOTE | 2021-03-23 18:29 | Anesthesiology Progress Note ---
Date of Service March 23, 2021 Anesthesia Post Procedure Vital Signs Vital Signs: Temp Pulse Pulse Resp BP BP BP 03/23/21 18:20 52 L 14 107/67 03/23/21 18:10 52 L 18 121/69 03/23/21 18:04 36.6 C 52 L 14 118/68 03/23/21 15:56 36.7 C 75 19 107/69 03/23/21 14:53 37.5 C 48 L 16 128/65 03/23/21 11:00 37.0 C 48 L 18 124/60 03/23/21 09:00 59 L 03/23/21 07:00 37.0 C 79 18 109/53 L 03/23/21 03:38 36.9 C 44 L 20 110/58 L 03/22/21 23:45 132/75 03/22/21 23:00 36.5 C 48 L 18 178/90 H 181/78 H 03/22/21 20:01 58 L 14 03/22/21 20:00 59 L 13 152/96 H 03/22/21 19:30 46 L 9 L 138/67 03/22/21 19:05 58 L 13 139/75 03/22/21 19:00 52 L 42 H 03/22/21 18:50 53 L 18 03/22/21 18:40 45 L 10 L 03/22/21 18:30 46 L 10 L 165/81 H Pulse Ox 03/23/21 18:20 99 03/23/21 18:10 99 03/23/21 18:04 100 03/23/21 15:56 96 03/23/21 14:53 97 03/23/21 11:00 100 03/23/21 09:00 03/23/21 07:00 95 03/23/21 03:38 93 03/22/21 23:45 03/22/21 23:00 99 03/22/21 20:01 96 03/22/21 20:00 97 03/22/21 19:30 98 03/22/21 19:05 99 03/22/21 19:00 91 03/22/21 18:50 92 03/22/21 18:40 96 03/22/21 18:30 98 Pain Intensity Upper Abdomen: Pain Intensity: 2 Transfer of Care Handoff Completed per policy Notes Mental Status: alert / awake / arousable Patient Amnestic to Procedure: Yes Nausea / Vomiting: adequately controlled Pain: adequately controlled Airway Patency, RR, SpO2: stable & adequate BP & HR: stable & adequate Hydration State: stable & adequate Anesthetic Complications: no major complications apparent and Pt Satisfied with anesthetic care
[2021-03-23] MEDS ORDERED: NON-FORMULARY MEDICATION (Sildenafil [Viagra] 100 mg tablet) PO PRN (18:51)
[2021-03-23] MEDS ORDERED: ATORVASTATIN 20 MG TAB PO SCH (21:00)
--- NOTE | 2021-03-23 23:00 | Electrocardiogram Report ---
Test Reason : Blood Pressure : / mmHG Vent. Rate : 039 BPM Atrial Rate : 039 BPM P-R Int : 190 ms QRS Dur : 100 ms QT Int : 456 ms P-R-T Axes : 049 020 046 degrees QTc Int : 367 ms Marked sinus bradycardia with occasional Premature ventricular complexes Abnormal ECG No previous ECGs available Confirmed by Marco Cordoba ([id number]) on 03/23/2021 11:00:35 PM Referred By: REFERRED SELF Confirmed By:Marco Cordoba
--- NOTE | 2021-03-24 00:06 | Operative Report (OR) ---
DATE OF OPERATION: 03/23/2021 PREOPERATIVE DIAGNOSES: Acute cholecystitis, cholelithiasis. POSTOPERATIVE DIAGNOSES: Acute cholecystitis, cholelithiasis. OPERATION: Laparoscopic cholecystectomy. SURGEON: Alfred Andrade MD. ANESTHESIA: General. ESTIMATED BLOOD LOSS: About 30 mL. FINDINGS: Significant inflammation on the gallbladder, 2.5 cm large gallstone on the gallbladder neck. The gallbladder was significant inflammation with edema, thickening with gangrene gallbladder. COMPLICATIONS: None. INDICATIONS FOR THE PROCEDURE: This is a 71-year-old gentleman who was admitted to hospital for acute cholecystitis with cholelithiasis. Recommended to do laparoscopic cholecystectomy, possible open, possible cholangiogram. I did talk to the patient about the benefit, the risk, alternate procedure. I indicated the risks may include but not limited such as bleeding, infection, injury to common bile duct, injury to bowel, bile leak, may need ERCP, myocardial infarction, stroke, DVT, even . The patient understands. He signed informed consent and I answered all questions. DETAILS OF PROCEDURE: We brought in the patient to the OR, put the patient in the supine position. The patient received SCD on bilateral legs to prevent DVT. Also, patient received 2 gm cefoxitin IV for prophylactic antibiotic and the patient received general anesthesia without difficulty. The abdomen was prepped and draped in routine sterile fashion. After time out, I injected local anesthesia by using 1% lidocaine mixed with 0.5% Marcaine just above the umbilicus. Then I made a small incision just above the umbilicus, opened fascia and opened peritoneum under direct vision, put a Elizabeth trocar in, connected to CO2 to create pneumoperitoneum. Flow rate is 6 liters per minute. Pressure not more than 14 mmHg. Once we got a nice pneumoperitoneum, we put the camera in, looked around the abdomen, shows normal finding on the liver. However, the gallbladder shows gangrene gallbladder with significant inflammation on the gallbladder. The whole gallbladder wall thickening, edema, distention. Then, we put another two 5 mm trocars on the right upper quadrant, one 11 trocar on the epigastric area. Once all trocars in, we found the patient had a large 2.5 cm stone on the gallbladder neck caused the gallbladder's significant distention. We used a large needle to decompress the gallbladder first and again the gallbladder shows significant inflammation with gangrene, gallbladder wall thickening, edema. So we used the grasper to hold the base of gallbladder, put in the direction to the diaphragm, another grasper to hold the pouch of gallbladder, put it lateral to expunge the triangle of Calot. The cystic duct was identified and mobilized. Then I put two 10 mm metal clips on the proximal cystic duct, one on the distal cystic duct. I then used a scissor for transection of cystic duct. Rechecked, no bile leak. The cystic artery was identified and mobilized. I put two 10 mm metal clips on the proximal cystic artery, 1 on the distal cystic artery and then used a scissor for transection of cystic artery. Rechecked, no active bleeding. Then we used the Bovie to take down gallbladder from the liver bed. Rechecked, no active bleeding, no bile leak from the liver bed. Then we removed gallbladder through the catch bag. Then we reinserted Elizabeth trocar in, connected to CO2 to create pneumoperitoneum, again looked around the abdomen, no active bleeding, no bile leak from liver bed. Then we removed all trocar under direct vision. No active bleeding from the trocar sites. Pneumoperitoneum was released, then closed the umbilical incision, fascial layer by using 2-0 Vicryl [id number] x2, closed subcutaneous layer by using 2-0 Vicryl interruptedly, closed skin by using 4-0 Vicryl continuous running, closed the epigastric area incision, the fascial layer by using 2-0 Vicryl interrupted and closed subcutaneous layer by using 2-0 Vicryl interruptedly, closed skin by using 4-0 Vicryl interruptedly, closed another two 5 mm trocar at the site of skin only by using 4-0 Vicryl. Then, we put the dressing on. The patient tolerated the procedure well. All instrument, needle and sponge counts were correct x2 at the end of the case. The patient transferred to recovery room in stable condition. The specimen sent to pathology. After the procedure, I did talk to the patient and the patient's about the OR finding and the procedure we did, they understand. I attest to the content of the Intraoperative Record and any orders documented therein. Any exception s are noted below.
[2021-03-24] MEDS: LACTATED RINGER'S 1,000 ML IV SCH ×2 (03:10→13:16)
[2021-03-24 06:00] LABS: Hematocrit (blood only) 35.9 % (42-52); Hemoglobin 12.1 g/dL (14.0-18.0); Immature Granulocytes # (auto) 0.03 K/uL (0.00-0.02); Immature Granulocytes % (auto) 0.4 %; Lymphocytes # (auto) 0.48 K/uL (1.2-3.4); Lymphocytes % (auto) 6.7 %; Mean Corpuscular Hemoglobin 30.7 pg (25-34); Mean Corpuscular Hgb Conc 33.7 g/dL (32-36); Mean Corpuscular Volume 91.1 fL (80-100); Mean Platelet Volume 9.1 fL (7.4-10.4); Monocytes # (auto) 0.44 K/uL (0.11-0.59); Monocytes % (auto) 6.2 %; Neutrophils % (auto) 86.7 %; Platelet Count 192 K/uL (130-400); RDW Coefficient of Variation 13.5 % (11.5-14.5); RDW Standard Deviation 45.2 fL (36.4-46.3); Red Blood Count 3.94 M/uL (4.7-6.1); White Blood Count 7.15 K/uL (4.8-10.8)
--- NOTE | 2021-03-24 06:01 | Electrocardiogram Report ---
Test Reason : Blood Pressure : / mmHG Vent. Rate : 059 BPM Atrial Rate : 059 BPM P-R Int : 176 ms QRS Dur : 100 ms QT Int : 400 ms P-R-T Axes : 066 019 027 degrees QTc Int : 396 ms Sinus bradycardia Otherwise normal ECG When compared with ECG of 22-MAR-2021 17:16, Premature ventricular complexes are no longer Present Vent. rate has increased BY 20 BPM Confirmed by Marco Cordoba ([id number]) on 03/24/2021 6:01:44 AM Referred By: REFERRED SELF Confirmed By:Marco Cordoba
[2021-03-24] MEDS: metroNIDAZOLE 500 MG/100 ML BAG IV SCH (06:22)
[2021-03-24 06:39] LABS: BUN Creatinine Ratio 14.1 (10-20); Calcium 8.6 mg/dl (8.5-10.1); Creatinine Clr Calc Pharmacy 71.3 ml/min; Est GFR (African American) 96.6; Est GFR (Non-African American) 83.4; Potassium 4.1 mmol/L (3.5-5.1)
[2021-03-24] MEDS ORDERED: ENOXAPARIN INJ 40 MG/0.4 ML SYR SQ SCH (09:00)
[2021-03-24] MEDS ORDERED: lisinopril 5 MG TAB PO SCH (09:00)
[2021-03-24] MEDS ORDERED: ACETAMINOPHEN 325 MG TAB PO PRN (09:10)
[2021-03-24] MEDS ORDERED: oxyCODONE/ACETAMINOPHEN 5mg/325mg TAB PO PRN (09:10)
[2021-03-24 09:46] LABS: Albumin Level 2.8 gm/dl (3.4-5.0); Bilirubin Direct 0.2 mg/dl (0-0.2); Bilirubin,Total 0.6 mg/dl (0.2-1); Total Protein 5.9 gm/dl (6.4-8.2)
--- NOTE | 2021-03-24 10:49 | Surgery Progress Note ---
Date of Service March 24, 2021 Assessment & Plan (1) Cholelithiasis and cholecystitis without obstruction: POD # 1 s/p laparoscopic cholecystectomy -avss - preoperative abdominal pain resolved, postop pain minimal - tolerating diet Plan: Doing well from surgical standpoint Regular diet for lunch Okay from surgical standpoint for discharge, discharge instructions reviewed f/u surgical office in [address] Varner has seen patient, agrees with above Admission and Anticipated Discharge Date Admission Date: March 22, 2021 Subjective feeling much better, preoperative abdominal pain has resolved minimal to little incisional pain, has not required any pain medication no nausea or vomiting ambulating hallway urinating without difficulty no chest pain/sob Physical Exam Constitutional: WD/WN, vitals as above Respiratory: normal respiratory effort; no respiratory distress and no labored breathing Gastrointestinal (Abdomen): Inspection/Auscultation: abdomen normal to inspection and + abdominal surgical incision (covered wtih dressing clean/dry/intact, spotting on supraumbilical dressing); abdomen not distended Skin: no rashes, warm and dry Psychiatric: A+Ox3, euthymic affect Results & Data ([facility]) Vital Signs (Past 12 Hours) Vital Signs Temp Pulse Resp BP Pulse Ox 03/24/21 07:01 36.7 C 49 L 18 110/65 95 03/24/21 03:27 36.9 C 105 H 16 90/52 L 91 Laboratory Results 03/24/21 03/24/21 03/24/21 Range/Units 05:22 05:22 05:22 WBC 7.15 (4.8-10.8) K/uL RBC 3.94 L (4.7-6.1) M/uL Hgb 12.1 L (14.0-18.0) g/dL Hct 35.9 L (42-52) % MCV 91.1 (80-100) fL MCH 30.7 (25-34) pg MCHC 33.7 (32-36) g/dL RDW Std Deviation 45.2 (36.4-46.3) fL RDW Coeff of Feliz 13.5 (11.5-14.5) % Plt Count 192 (130-400) K/uL MPV 9.1 (7.4-10.4) fL Immature Gran % (Auto) 0.4 % Neut % (Auto) 86.7 % Lymph % (Auto) 6.7 % [place] % (Auto) 6.2 % Eos % (Auto) 0.0 % Baso % (Auto) 0.0 % Neut # (Auto) 6.20 (1.4-6.5) K/uL Lymph # (Auto) 0.48 L (1.2-3.4) K/uL [place] # (Auto) 0.44 (0.11-0.59) K/uL Eos # (Auto) 0.00 (0-0.5) K/uL Baso # (Auto) 0.00 (0-0.2) K/uL Immature Gran # (Auto) 0.03 H (0.00-0.02) K/uL Sodium 141 (136-145) mmol/L Potassium 4.1 (3.5-5.1) mmol/L Chloride 109 H (98-107) mmol/L Carbon Dioxide 27 (21-32) mmol/L Anion Gap 5.0 (3-11) BUN 13 (7-18) mg/dl Creatinine 0.92 (0.6-1.4) mg/dl Est Cr Clr Drug Dosing 71.3 ml/min Est GFR ( Amer) 96.6 Est GFR (Non-Af Amer) 83.4 BUN/Creatinine Ratio 14.1 (10-20) Glucose 111 H (70-99) mg/dl Calcium 8.6 (8.5-10.1) mg/dl Total Bilirubin 0.6 (0.2-1) mg/dl Direct Bilirubin 0.2 (0-0.2) mg/dl AST 28 (15-37) U/L ALT 45 (12-78) U/L Alkaline Phosphatase 220 H (45-117) U/L Total Protein 5.9 L (6.4-8.2) gm/dl Albumin 2.8 L (3.4-5.0) gm/dl (1) Cholelithiasis and cholecystitis without obstruction Cholecystitis acuity: acute Cholelithiasis location: gallbladder Qualified Code(s): K80.00 - Calculus of gallbladder with acute cholecystitis without obstruction
--- NOTE | 2021-03-24 13:08 | Discharge Summary ---
Date of Service March 24, 2021 Admission HPI Per Admitting Provider 71 YOM with past medical history of HTN, previous smoker (quit in 1979), HLD, and seborrheic keratosis. Patient reports that he was at a [employer] and out of now where he started getting a sharp aching pain to his epigastrium area. The patient points directly below his xiphoid process to localize the pain. The pain was constant pain and has remained constant level since then. This was associated with nausea without vomiting. He has had no dyspnea. The pain did not radiate to any other area. He last ate a hamburger at noon today and this did not change his pain. He had episode of diarrhea that was watery brown with no reports of blood or mucous in it. The patient feels as his pain is getting better following IV hydromorphone in the ER. During his initial work-up he was also found to be bradycardic in NSR. Patient normally is in the 70s per review of his outpatient apointments. There is no other ECG available for comparison. The patient had a CT scan of the abdomen done that revealed a 2.5 cm gallstone in the neck of the gall bladder, ultrasound is pending for follow up. Dr. Andrade from General Surgery was consulted by the EMD Dr. Baker. He also received 2GM Cefoxitin, and 1 L 0.9 saline for a lactate of 3.5. He is hemodynamically stable, no other evidence of organ dysfunction, normal LFT's and lipase. He will be admitted [facility] floor for telemetry monitoring. Admission Exam Per Admitting Provider General: awake, alert, no apparent distress Head: Normocephalic, atraumatic ENT: PERRL, EOMI, no pharyngeal exudate, mucous membranes moist Neuro: AAO x 3, speech clear and appropriate, strength intact bilaterally 5/5, sensation intact and equal all extremities and dermatomes, no pronator drift Chest: equal rise and fall of the chest, no accessory muscle use, no heaves or thrills, Clear to auscultation, on room air, Cardiac: Regular rate and rhythm, telemetry reviewed regular sinus marii with occasional PVC, skin warm dry, cap refill <3 seconds, peripheral pulses +2 no JVD, no murmur, no edema GI: NABS x 4 quadrants, soft, nontender to palpation, no rebound, guarding or tenderness : Spontaneously voiding, no pain, no CVA tenderness, Extremities: Normal inspection, no peripheral edema or erythema, calfs nontender to palpation Psych: Normal mood and affect Skin: no rash or erythema Principal Diagnosis Acute calculous cholecystitis (acute inflammation of gallbladder with gallstone) Discharge Exam Constitutional WD/WN, vitals as above Eyes + anicteric sclerae; normal pupil size Respiratory normal respiratory effort, lungs clear to auscultation Cardiovascular Rate/Rhythm: regular rhythm Heart Sounds: no murmur Gastrointestinal (Abdomen) Inspection/Auscultation: normal bowel sounds Percussion/Palpation: abdomen soft; abdomen nontender, no guarding and abdomen not rigid Musculoskeletal no cyanosis or clubbing, extremities motor strength 5/5 Skin no rashes, warm and dry Neurologic moves all extremities and awake; not confused Psychiatric A+Ox3, euthymic affect Discharge Data Allergies Allergy/AdvReac Type Severity Reaction Status Date / Time Penicillins Allergy Mild Unknown Verified 03/31/21 09:21 Consultations 03/22/21 19:32 ED Decision to Admit Stat 03/22/21 22:35 Consult General Surgery Routine 03/22/21 23:02 Consult Cardiology Routine Procedures Performed Operation Date: 03/23/21 14:25 Actual Procedures p Laparoscopic Cholecystectomy(Not Applicable) - Alfred Andrade MD Ordered Studies 03/22/21 17:52 CT angio abdomen pelvis w con Stat CT angio chest PE protocol Stat IMPRESSION: 1. Unremarkable CT angiogram of the thoracic aorta and abdominal aorta. 2. There is no evidence of pulmonary embolus in the main, lobar, or segmental pulmonary arteries. 3. Mild cardiomegaly and mild emphysematous change. 4. There is no airspace consolidation typical for pneumonia or pleural effusion. 5. Diffuse peribronchial thickening suggests bronchitis/reactive airway disease. Clinical correlation will be required. 6. Cholelithiasis with a 2.5 cm gallstone the region of the gallbladder neck. Question faint surrounding infiltration. If there is clinical concern for acute cholecystitis a right upper quadrant ultrasound should be considered. 7. Unremarkable CT angiogram of the major branches of the abdominal aorta. 8. There is trace nonspecific perisplenic ascites. 9. The bladder wall appears thickened and trabeculated, likely representing the sequelae of chronic outlet obstruction. Correlate with urinalysis. 10. Additional findings as above. 03/22/21 19:23 US gallbladder Stat IMPRESSION: 1. Cholelithiasis. No evidence of wall thickening. No evidence of pericholecystic fluid 2. 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 2. No ductal dilatation. The common bile duct measures 3 mm. Hospital Course (1) Cholelithiasis and cholecystitis without obstruction: Rubén Smith is a 71-year-old male admitted to [facility] from March 22-2020 due to abdominal pain. He was diagnosed with acute cholecystitis which was treated with intravenous antibiotics and surgical management with laparoscopic cholecystectomy performed on 03/23/2021. He did well post operatively and is now medically stable for discharge. Incidentally he was also had a low heart rate. This was reviewed by cardiology pre-operatively and felt this was secondary to high vagal tone with your current infection. No arrhythmia other than a slow heart rate was seen on telemetry pre-operatively. Per surgical recommendations no antibiotics needed on discharge. (2) Epigastric pain: (3) Benign essential hypertension: (4) Hypercholesterolemia: (5) Bradycardia: Total Time Total Time Spent Total Time Spent (In Minutes): 35 Discharge Plan Discharge Items Patient Disposition: Home - Self-Care Reason For Visit: ABDOMINAL PAIN Discharge Diagnosis: Acute calculous cholecystitis (acute inflammation of gallbladder with gallstone) Activity: Per Instructions section Non-emergency contact: Surgeon Call non-emergency contact if: you have any medication questions and your symptoms worsen Follow-up/Referrals: Scar Hooks III, CRNP [Primary Care Provider] - 03/31/21 9:20 am Diet: Regular Addtl Attending Provider Instructions: You were admitted to [facility] from March 22-2020 due to abdominal pain. You were diagnosed with acute cholecystitis (infected gall bladder) which was treated with intravenous antibiotics and surgical management with laparoscopic cholecystectomy performed on 03/23/2021. You did well post operatively and are now medically stable for discharge. Incidentally you also had a low heart rate. You were reviewed by cardiology pre-operatively and felt this was secondary to high vagal tone with your current infection. No arrhythmia other than a slow heart rate was seen on telemetry pre-operatively. Addtl Enrollment Management Director Provider Instructions: Post-Surgical ~Discharge Instructions Activity Recommendations: - lifting limitation: (20 pounds for 4 weeks), - exercise/sex/sports limit: (nonstrenuous for 2 weeks), - driving or machine use limit: (none for 1 week or until pain free), - Shower/bathe limit: (may shower , no bathing or submerging incisions for 2 weeks) Diet: - Resume previous diet SPECIAL CARE INSTRUCTIONS: - May shower on Tuesday03/27/21. Sponge bath and wash hair in meantime . On Tuesday, remove outer dressings and shower. Let water run over area and pat dry. - Leave steri strips on for one week and then remove. They may fall off on their own that is okay. You do not need to replace. - Call the surgeon's office with any questions or concerns - - (ex. temperature higher than 101 degrees F, excessive bleeding or pain). MEDICATIONS: - Resume previous medications unless instructed otherwise by your surgeon. - May alternate extra strength Tylenol and Ibuprofen as needed for pain - Tylenol 500-650 mg every 6 hours as needed - Ibuprofen 600 mg every 6 hours as needed (take with food) - Percocet as needed for moderate to severe pain. Take as directed. - May want to take [id number] stool softener (Colace) while taking narcotic pain medication to prevent constipation. FOLLOW UP VISIT: - If not already scheduled, please call the office to schedule a two week follow-up appointment. Office number Pending Studies at Discharge: Yes Stand-Alone Forms: [facility] Medications and DC Order Prescriptions: Continued atorvastatin 20 mg tablet 20 mg PO HS Qty: 90 RF: 1 sildenafil [Viagra] 100 mg tablet 100 mg PO DAILY PRN (Reason: sexual activity) Qty: 6 RF: 5 lisinopril 5 mg tablet 5 mg PO DAILY Qty: 90 RF: 2 Discharge Orders: Discharge Order (Routine); Ordered 03/24/21 Ordered By: Zeyad Cruz/Other Patient Handouts: DVT Post Op Prevention Admission Data Admit Date/Time: 03/22/21 20:10 Attending Provider: Zeyad Esquivel Admit Provider: Etienne Chand Primary Care Provider: Scar Hooks III Other Providers: Alfred Andrade ; Andres Desai Other Interventions: Discharge Summary Assessment (RN) Last Done: 03/24/21 13:08 Coding Level of Care Code D/C Day Management >30 mins Diagnoses Cholelithiasis and cholecystitis without obstruction K80.00 Cholecystitis acuity: acute Cholelithiasis location: gallbladder Epigastric pain R10.13 Benign essential hypertension I10 Hypercholesterolemia E78.00 Bradycardia R00.1
--- NOTE | 2021-03-24 13:48 | Cardiology Progress Note ---
Date of Service March 24, 2021 Assessment & Plan (1) Bradycardia: Patient had transient significant sinus bradycardia, likely due to high vagal tone in the setting of abdominal discomfort. And her definitive treatment of his symptomatic cholecystitis, having undergone laparoscopic cholecystectomy yesterday 03/23/2021 which he tolerated well. Patient's vital signs remained stable. Stable for discharge from a cardiology standpoint on his prior to hospital treatment with lisinopril and atorvastatin. Patient can follow-up with PCP, no specific cardiology follow-up is necessary unless future concerns arise. Admission and Anticipated Discharge Date Admission Date: March 22, 2021 Subjective Patient seen in cardiology follow-up of bradycardia. He tolerated laparoscopic cholecystectomy well yesterday. He feels much improved compared to prior to the operation. He is in good spirits. Physical Exam Physical Exam: Temp Pulse Resp BP Pulse Ox 37.1 C 62 18 127/70 96 03/24/21 12:00 03/24/21 12:00 03/24/21 12:00 03/24/21 12:00 03/24/21 12:00 Constitutional: WD/WN, vitals as above Respiratory: normal respiratory effort, lungs clear to auscultation Cardiovascular: RRR, no murmur, no edema Gastrointestinal (Abdomen): Not examined Neurologic: PERRL, EOMI, accommodation nl, no face palsy, no dysarthria Results & Data ([facility]) Vital Signs (Past 12 Hours) Vital Signs Temp Pulse Resp BP Pulse Ox 03/24/21 12:00 37.1 C 62 18 127/70 96 03/24/21 07:01 36.7 C 49 L 18 110/65 95 03/24/21 03:27 36.9 C 105 H 16 90/52 L 91 Laboratory Results Cardiac Enzymes 03/24/21 Range/Units 05:22 AST 28 (15-37) U/L CBC 03/24/21 Range/Units 05:22 WBC 7.15 (4.8-10.8) K/uL RBC 3.94 L (4.7-6.1) M/uL Hgb 12.1 L (14.0-18.0) g/dL Hct 35.9 L (42-52) % Plt Count 192 (130-400) K/uL Neut # (Auto) 6.20 (1.4-6.5) K/uL Lymph # (Auto) 0.48 L (1.2-3.4) K/uL Crook # (Auto) 0.44 (0.11-0.59) K/uL Eos # (Auto) 0.00 (0-0.5) K/uL Baso # (Auto) 0.00 (0-0.2) K/uL Comprehensive Metabolic Panel 03/24/21 03/24/21 Range/Units 05:22 05:22 Sodium 141 (136-145) mmol/L Potassium 4.1 (3.5-5.1) mmol/L Chloride 109 H (98-107) mmol/L Carbon Dioxide 27 (21-32) mmol/L BUN 13 (7-18) mg/dl Creatinine 0.92 (0.6-1.4) mg/dl Glucose 111 H (70-99) mg/dl Calcium 8.6 (8.5-10.1) mg/dl Direct Bilirubin 0.2 (0-0.2) mg/dl AST 28 (15-37) U/L ALT 45 (12-78) U/L Alkaline Phosphatase 220 H (45-117) U/L Total Protein 5.9 L (6.4-8.2) gm/dl Albumin 2.8 L (3.4-5.0) gm/dl Intake and Output 03/23/21 03/24/21 03/24/21 22:59 06:59 14:59 Intake Total 3642.667 / 5430.667 628 / 5430.667 546.667 / 546.667 Output Total 530 / 2355 1825 / 2355 1080 / 1080 Balance 3112.667 / 3075.667 -1197 / 3075.667 -533.333 / -533.333 Intake: IV 882.667 / 2670.667 628 / 2670.667 546.667 / 546.667 Lactated Ringer's 1,000 ml @ 80 562.667 / 2190.667 628 / 2190.667 446.667 / 446.667 mls/hr IV .[id number] [facility] Rx#: [id number] cefOXitin 2,000 mg In 60 ml @ 120 / 180 100 mls/hr IV Q6H [facility] Rx#: [id number] metroNIDAZOLE 500 mg In 100 ml 200 / 300 100 / 100 @ 100 mls/hr IV Q8 [facility] Rx#: [id number] IV Perioperative 1999 / 1999 Oral 760 / 760 Output: Urine 500 / 2325 1825 / 2325 1080 / 1080 Estimated Blood Loss Other: # Unmeasured Voids 1 Weight 78.3 kg 78.3 kg Patient Weight 03/25/21 06:59 Weight 78.3 kg
== END 2021-03-24 14:05 | disposition home or self-care (01) | DRG 419 ==
LOC: ED 17:05 → SUATTDRO 20:10 → INTOOBSV 20:10 → 2S 20:10 → 3W 03-23 21:04